=== PATIENT | male | born 2000 | race Caucasian/White ===

== ENCOUNTER 2021-06-17 21:56 | Inpatient (IN) ==
[2021-06-17 22:28] LABS: Basophils # (auto) 0.01 K/uL (0-0.2); Basophils % (auto) 0.1 %; Hematocrit (blood only) 46.8 % (42-52); Hemoglobin 17.3 g/dL (14.0-18.0); Immature Granulocytes # (auto) 0.02 K/uL (0.00-0.02); Immature Granulocytes % (auto) 0.2 %; Lymphocytes # (auto) 1.14 K/uL (1.2-3.4); Lymphocytes % (auto) 12.6 %; Mean Corpuscular Hemoglobin 32.6 pg (25-34); Mean Corpuscular Volume 88.3 fL (80-100); Mean Platelet Volume 9.7 fL (7.4-10.4); Monocytes # (auto) 1.02 K/uL (0.11-0.59); Monocytes % (auto) 11.3 %; Neutrophils # (auto) 6.83 K/uL (1.4-6.5); Neutrophils % (auto) 75.8 %; Platelet Count 378 K/uL (130-400); RDW Coefficient of Variation 11.9 % (11.5-14.5); White Blood Count 9.02 K/uL (4.8-10.8)
[2021-06-17] MEDS ORDERED: SODIUM CHLORIDE 0.9% 1000ML 2,000 ML IV ONE (22:28)
[2021-06-17] MEDS ORDERED: PROMETHAZINE 25 MG/51 ML BAG IV STA (22:36)
[2021-06-17] MEDS ORDERED: GI COCKTAIL ED USE PO ONE (22:39)
--- NOTE | 2021-06-17 22:39 | Emergency Department Note ---
Impression & Plan Choledocholithiasis, Transaminitis, Elevated bilirubin, Abdominal pain ED Provider Note NAME: DEBBI VILLANUEVA AGE: 21 SEX: M : 2000 ARRIVES VIA: Walk-In INFORMANT: Patient ED PROVIDER(S): Yonathan Butt DO CHIEF COMPLAINT: abdominal pain HPI: Patient is a 21-year-old male who presents to the ER for epigastric abdominal pain which has been present for there are past 3 days. Started on Saturday. Admits to nausea and vomiting. Everything he drinks comes back up. No dysuria, urgency, or frequency. He admits to dark urine. Normal bowel movem ents. No previous abdominal surgeries. He has been taking pantoprazole and improves initially after taking this but then it comes back. He is just started taking Carafate. No cough or runny nose. No other exacerbating or remitting factors. The pain does come up to the back of his throat and then he vomits. He does get in a runny nose after vomiting. ROS: See above HPI for pertinent positives & negatives. A total of 10 systems reviewed and were otherwise negative. PAST MEDICAL HISTORY:See Below PAST SURGICAL HISTORY:See Below FAMILY HISTORY:See Below SOCIAL HISTORY:See Below HOME MEDICATIONS:See Below ALLERGIES:See Below VITALS:See Below PHYSICAL EXAMINATION: GENERAL: Sitting up in bed, alert, well appearing, well nourished, no distress, non-toxic EYE EXAM: normal conjunctiva. PERRL and EOM's grossly intact. Scleral icterus OROPHARYNX: no exudate, no erythema, lips, buccal mucosa, and tongue normal and mucous membranes are moist NECK: supple, no nuchal rigidity, no adenopathy, non-tender LUNGS: Clear to auscultation. Normal chest wall mechanics HEART: no murmurs, S1 normal and S2 normal ABDOMEN: abdomen soft, tender in the epigastric region normo-active bowel sounds, no masses, no rebound or guarding. UPPER EXTREMITIES: upper extremities are grossly normal. SKIN: Jaundice LOWER EXTREMITIES: No pitting edema. NEURO EXAM: Normal sensorium, cranial nerves II-XII grossly intact, normal speech, no gross weakness of arms, no weakness of legs. MEDICAL DECISION MAKING: Patient is a 21-year-old male who presents the ER for above-stated complaint. IV was established blood was obtained. Labs show no significant leukocytosis or anemia. BMP was unremarkable. LFTs were elevated at 300 and T bili at 10. UA difficult to interpret but no white cells. Covid was negative. CT abdomen pelvis shows a large distended gallbladder with a CBD of 10 mm. Initially discussed case with Dr. Dixon for admission but she recommended general surgery. Dr. Vangie Robin was gracious enough to admit the patient. Patient was given IV fluids, morphine, Zofran and Phenergan. Patient was updated and admitted for further work-up. Triage Nursing notes reviewed. Limited review of prior medical records performed Vital Signs: reviewed and remarkable for tachy Differential diagnosis: Differential diagnoses includes but is not limited to gastritis, peptic ulcer disease, GERD, gallbladder disease, pancreatitis, small bowel obstruction, acute coronary syndrome, pericarditis, ischemic bowel, irritable bowel disease, irritable bowel syndrome, appendicitis, diverticulitis, malignancy, hernia, urinary tract infection, torsion, perforation, trauma, infectious. ER treatment provided: See below Diagnostics interpreted by me: ECG: none Cardiac Monitoring: An order was placed for continuous cardiac monitoring. The monitor shows a rate of 70 with sinus rhythm. Laboratory studies: As stated above and show below. Imaging studies: CT abdomen pelvis shows distended gallbladder with thickened wall and a CBD of 10 mm Consultation(s): Discussed with Vangie Robin for admission Procedures: none Critical Care: None Past Med/Surg History Medical History (Updated 06/18/21 @ 02:04 by Yonathan Butt DO) No significant past medical history Social History Smoking Status: Current every day smoker Tobacco Type: E-cigarettes / Vaping Preferred Language: Uzbek Feels Safe at Home: Yes Allergies Allergies Allergy/AdvReac Type Severity Reaction Status Date / Time No Known Allergies Allergy Unverified 06/17/21 22:34 Home Meds Home Medications Medication Instructions Recorded Confirmed No Known Home Medications 06/17/21 06/17/21 Results & Data (ED) Vital Signs Vital Signs - 24 hr 06/17/21 22:00 06/17/21 22:32 06/17/21 23:21 Temperature 36.5 C Temperature Source Temporal Artery Scan Pulse Rate 120 H Pulse Rate [Bilateral Apical] 117 H 68 Respiratory Rate 18 20 20 Blood Pressure 136/97 Blood Pressure [Right Arm] 139/94 162/82 H Blood Pressure Mean 110 Blood Pressure Mean [Right Arm] 109 108 Blood Pressure Position Sitting Pulse Oximetry 97 95 99 Oxygen Delivery Method Room Air Room Air Room Air Sepsis Recent Fever Within 48 Hours No Sepsis New/Unexplained Change in Mental Status No Sepsis Action Taken by Nursing No Action Required 06/18/21 00:21 Temperature Temperature Source Pulse Rate Pulse Rate [Bilateral Apical] 58 L Respiratory Rate 20 Blood Pressure Blood Pressure [Right Arm] 116/80 Blood Pressure Mean Blood Pressure Mean [Right Arm] 92 Blood Pressure Position Pulse Oximetry 98 Oxygen Delivery Method Room Air Sepsis Recent Fever Within 48 Hours Sepsis New/Unexplained Change in Mental Status Sepsis Action Taken by Nursing Laboratory Data Result diagrams: 06/17/21 22:00 06/17/21 22:00 Lab Results 06/17/21 06/17/21 06/17/21 Range/Units 22:00 22:00 22:55 WBC 9.02 (4.8-10.8) K/uL RBC 5.30 (4.7-6.1) M/uL Hgb 17.3 (14.0-18.0) g/dL Hct 46.8 (42-52) % MCV 88.3 (80-100) fL MCH 32.6 (25-34) pg MCHC 37.0 H (32-36) g/dL RDW Std Deviation 38.0 (36.4-46.3) fL RDW Coeff of Santy 11.9 (11.5-14.5) % Plt Count 378 (130-400) K/uL MPV 9.7 (7.4-10.4) fL Immature Gran % (Auto) 0.2 % Neut % (Auto) 75.8 % Lymph % (Auto) 12.6 % [place] % (Auto) 11.3 % Eos % (Auto) 0.0 % Baso % (Auto) 0.1 % Neut # (Auto) 6.83 H (1.4-6.5) K/uL Lymph # (Auto) 1.14 L (1.2-3.4) K/uL [place] # (Auto) 1.02 H (0.11-0.59) K/uL Eos # (Auto) 0.00 (0-0.5) K/uL Baso # (Auto) 0.01 (0-0.2) K/uL Immature Gran # (Auto) 0.02 (0.00-0.02) K/uL Sodium 136 (136-145) mmol/L Potassium 3.6 (3.5-5.1) mmol/L Chloride 101 (98-107) mmol/L Carbon Dioxide 21 (21-32) mmol/L Anion Gap 15.0 H (3-11) BUN 28 H (7-18) mg/dl Creatinine 1.12 (0.6-1.4) mg/dl Est Cr Clr Drug Dosing 99.8 ml/min Est GFR ( Amer) 106.7 ml/min Est GFR (Non-Af Amer) 92.1 ml/min BUN/Creatinine Ratio 25.0 H (10-20) Glucose 113 H (70-99) mg/dl Calcium 10.1 (8.5-10.1) mg/dl Total Bilirubin 10.3 H (0.2-1) mg/dl AST 270 H (15-37) U/L ALT 300 H (12-78) Alkaline Phosphatase 203 H D (45-117) U/L Total Protein 9.4 H (6.4-8.2) gm/dl Albumin 4.8 (3.4-5.0) gm/dl Globulin 4.6 H (2.5-4.0) gm/dl Albumin/Globulin Ratio 1.0 (0.9-2) Urine Color [place] Urine Appearance Clear (Clear) Urine pH (4.5-7.5) Ur Specific [place] > 1.030 H (1.000-1.030) Urine Protein (Negative) Urine Glucose (UA) (Negative) Urine Ketones (Negative) Urine Blood (Negative) Urine Nitrite (Negative) Urine Bilirubin (Negative) Urine Urobilinogen (Negative) Ur Leukocyte Esterase (Negative) Urine RBC 0-4 (0-4) /hpf Urine WBC 0-5 (0-5) /hpf Ur Epithelial Cells 0-5 (0-5) /lpf Urine Bacteria Negative (Negative) Urine Mucus Present A (None Prsent) SARS-CoV-2, RNA, NAAT (NEGATIVE) 06/18/21 Range/Units 00:20 WBC (4.8-10.8) K/uL RBC (4.7-6.1) M/uL Hgb (14.0-18.0) g/dL Hct (42-52) % MCV (80-100) fL MCH (25-34) pg MCHC (32-36) g/dL RDW Std Deviation (36.4-46.3) fL RDW Coeff of Santy (11.5-14.5) % Plt Count (130-400) K/uL MPV (7.4-10.4) fL Immature Gran % (Auto) % Neut % (Auto) % Lymph % (Auto) % [place] % (Auto) % Eos % (Auto) % Baso % (Auto) % Neut # (Auto) (1.4-6.5) K/uL Lymph # (Auto) (1.2-3.4) K/uL [place] # (Auto) (0.11-0.59) K/uL Eos # (Auto) (0-0.5) K/uL Baso # (Auto) (0-0.2) K/uL Immature Gran # (Auto) (0.00-0.02) K/uL Sodium (136-145) mmol/L Potassium (3.5-5.1) mmol/L Chloride (98-107) mmol/L Carbon Dioxide (21-32) mmol/L Anion Gap (3-11) BUN (7-18) mg/dl Creatinine (0.6-1.4) mg/dl Est Cr Clr Drug Dosing ml/min Est GFR ( Amer) ml/min Est GFR (Non-Af Amer) ml/min BUN/Creatinine Ratio (10-20) Glucose (70-99) mg/dl Calcium (8.5-10.1) mg/dl Total Bilirubin (0.2-1) mg/dl AST (15-37) U/L ALT (12-78) Alkaline Phosphatase (45-117) U/L Total Protein (6.4-8.2) gm/dl Albumin (3.4-5.0) gm/dl Globulin (2.5-4.0) gm/dl Albumin/Globulin Ratio (0.9-2) Urine Color Urine Appearance (Clear) Urine pH (4.5-7.5) Ur Specific [place] (1.000-1.030) Urine Protein (Negative) Urine Glucose (UA) (Negative) Urine Ketones (Negative) Urine Blood (Negative) Urine Nitrite (Negative) Urine Bilirubin (Negative) Urine Urobilinogen (Negative) Ur Leukocyte Esterase (Negative) Urine RBC (0-4) /hpf Urine WBC (0-5) /hpf Ur Epithelial Cells (0-5) /lpf Urine Bacteria (Negative) Urine Mucus (None Prsent) SARS-CoV-2, RNA, NAAT NEGATIVE (NEGATIVE) Administered Medications Discontinued Medications Al Hydrox/Mg Hydrox/Simethicone (Gi Cocktail Ed Use) 1 dose PO ONE ONE Stop: 06/17/21 22:40 Last Admin: 06/17/21 22:51 Dose: 1 dose Documented by: [id number] Sodium Chloride (Nss 1000ml) 2,000 mls @ 999 mls/hr IV .Q2H1M ONE Stop: 06/18/21 00:28 Last Infusion: 06/18/21 00:36 Dose: 0 mls/hr Documented by: [id number] Admin: 06/17/21 22:51 Dose: 999 mls/hr Documented by: [id number] Promethazine HCl (Phenergan) 25 mg in 51 mls @ 204 mls/hr IV NOW STA Stop: 06/17/21 22:50 Last Infusion: 06/17/21 23:12 Dose: 0 mls/hr Documented by: [id number] Admin: 06/17/21 22:51 Dose: 204 mls/hr Documented by: [id number] Piperacillin Sod/Tazobactam Sod (Zosyn) 4.5 gm in 120 mls @ 240 mls/hr IV NOW ONE Stop: 06/17/21 23:58 Last Infusion: 06/18/21 00:36 Dose: 0 mls/hr Documented by: [id number] Admin: 06/18/21 00:04 Dose: 240 mls/hr Documented by: [id number] Ioversol (Optiray 320 100ml) 95 ml IV ONCE ONE Stop: 06/17/21 23:47 Last Admin: 06/17/21 23:37 Dose: 95 ml Documented by: [id number] Morphine Sulfate (Morphine Sulfate 4 Mg/Ml 1 Ml Carp\Vial) 4 mg IV NOW STA Stop: 06/18/21 00:52 Last Admin: 06/18/21 00:59 Dose: 4 mg Documented by: [id number] Ondansetron HCl (Ondansetron Inj 2 Mg/Ml 2 Ml Vial) 4 mg IV NOW STA Stop: 06/18/21 00:52 Last Admin: 06/18/21 00:59 Dose: 4 mg Documented by: [id number] Discharge Plan Visit Data Chief Complaint: Flu Like Symptoms Stated Complaint: LIGHT HEADED, ABD PAIN, VOMITING, SHAKY, SWEATS ED Provider: Yonathan Butt Discharge Problem: Choledocholithiasis, Transaminitis, Elevated bilirubin, Abdominal pain Discharge Instructions Interventions: ED Discharge Assessment Last Done: 06/18/21 01:39 Discharge Problem: Abdominal pain Qualifiers: Abdominal location: unspecified location Qualified Code(s): R10.9 - Unspecified abdominal pain
[2021-06-17 22:49] LABS: Albumin Level 4.8 gm/dl (3.4-5.0); Calcium 10.1 mg/dl (8.5-10.1); Creatinine Clr Calc Pharmacy 99.8 ml/min; Est GFR (African American) 106.7 ml/min; Est GFR (Non-African American) 92.1 ml/min; Potassium 3.6 mmol/L (3.5-5.1)
[2021-06-17 22:53] LABS: Bilirubin,Total 10.3 mg/dl (0.2-1); Globulin 4.6 gm/dl (2.5-4.0); Total Protein 9.4 gm/dl (6.4-8.2)
[2021-06-17] MEDS ORDERED: PIPERACILLIN/TAZOBACTAM 4.5 GM/120 ML BAG IV ONE (23:29)
[2021-06-17] MEDS ORDERED: PIPERACILL/TAZOBAC CONSULT ACTIVE PRN (23:29)
[2021-06-17] MEDS ORDERED: OPTIRAY 320 100ml IV ONE (23:46)
[2021-06-17 23:55] LABS: Appearance Urine Clear (Clear); Color Urine Orange
[2021-06-17 23:56] LABS: Specific Gravity Urine > 1.030 (1.000-1.030)
[2021-06-17 23:58] LABS: Bacteria Urine Negative (Negative); Epithelial Cell Urine 0-5 /lpf (0-5); Mucus Urine Present (None Prsent); RBC Urine 0-4 /hpf (0-4); WBC Urine 0-5 /hpf (0-5)
[2021-06-18] MEDS ORDERED: ONDANSETRON INJ 2 MG/ML 2 ML VIAL IV STA (00:51)
[2021-06-18] MEDS ORDERED: MoRPHine SULFATE 4 MG/ML 1 ML CARP\\VIAL IV STA (00:51)
[2021-06-18] MEDS ORDERED: ACETAMINOPHEN 325 MG TAB PO PRN (02:02)
[2021-06-18] MEDS ORDERED: PIPERACILL/TAZOBAC CONSULT ACTIVE PRN (02:02)
[2021-06-18] MEDS ORDERED: oxyCODONE/ACETAMINOPHEN 5mg/325mg TAB PO PRN ×2 (02:02)
[2021-06-18] MEDS ORDERED: MoRPHine SULFATE 2 MG/ML CARP IV PRN (02:02)
[2021-06-18] MEDS ORDERED: FLUARIX QUADRIVALENT 0.5 ML SYR IM ONE (02:16)
[2021-06-18] MEDS: LACTATED RINGER'S 1,000 ML IV SCH ×3 (02:17→21:49)
[2021-06-18] MEDS: ONDANSETRON INJ 2 MG/ML 2 ML VIAL IV PRN ×3 (05:40→18:16)
[2021-06-18] MEDS: MoRPHine SULFATE 4 MG/ML 1 ML CARP\\VIAL IV PRN ×6 (05:40→21:49)
[2021-06-18] MEDS: PIPERACILLIN/TAZOBACTAM 3.375 GM in DEXTROSE 5% 100 ML IV SCH ×3 (06:38→21:40)
--- NOTE | 2021-06-18 08:56 | CT Scan Report ---
ABDOMEN AND PELVIS CT WITH IV CONTRAST CT DOSE: 274.66 mGy.cm HISTORY: Nausea. Vomiting. Generalized abd pain TECHNIQUE: Multiaxial CT images of the abdomen and pelvis were performed following the use of intrave nous contrast. A dose lowering technique was utilized adhering to the principles of ALARA. COMPARISON STUDY: Abdomen and pelvis CT 06/26/2019. FINDINGS: The lung bases are clear. No pneumoperitoneum. No pneumatosis. No fractures within the visu alized osseous structures. The spleen, adrenal glands, pancreas, and kidneys are unremarkable. No hyd ronephrosis. Diffuse gallbladder wall thickening with trace pericholecystic fluid. There is also mild intra and extra hepatic bile duct dilatation. No obstructing stones or lesions identified. However, these findings are concerning for acute cholecystitis. No retroperitoneal lymphadenopathy. Normal maria luisa iber abdominal aorta. No pelvic free fluid. The bladder is unremarkable. No bowel wall thickening or obstruction. Normal appendix. IMPRESSION: Diffuse gallbladder wall thickening with trace pericholecystic fluid. There is also mild intra and ex tra hepatic bile duct dilatation. No obstructing stones or lesions identified. However, these finding s are concerning for acute cholecystitis. Therefore, surgical consultation recommended. ACT 112: Negative or not required by law. Electronically signed by: Scott Morel M.D. 06/18/2021 8:54 AM
--- NOTE | 2021-06-18 10:56 | History & Physical Report ---
Date of Service June 18, 2021 Assessment & Plan (1) Transaminitis: Plan: Significantly elevated bilirubin and AST/ ALT. No sign of gallstones on abdominal CT scan but does demonstrate pericholecystic fluid, mild intra and extra hepatic dilation. Review of CT abd from 2019 showed trace GB wall edema at that time. Unclear etiology - ? stones/ sludge, ? viral hepatitis, ? drug toxicity. Will ask for GI consult. Follow LFT's. Abdominal US ordered to get a better look at GB. May need MRCP, hepatitis serologies, etc. Given no stones, I have asked medicine to admit patient. Will follow. (2) Abdominal pain: Plan: Treat symptomatically - pain meds, NPO except ice chips. Will add IV protonix given history of ulcer. Admission and Anticipated Discharge Date Admission Date: June 18, 2021 History of Present Illness Chief Complaint: abdominal pain, nausea and vomiting Primary Care Provider: [facility] 21 yr old man presents with abdominal pain since Saturday. Diffuse, generalized, worse in epigastrium and sternal area, radiates to back, sharp/ stabbing at times. 10/10 in severity. Associated with nausea, vomiting, dry heaves. [place] short of breath and had chills after throwing up. Unable to even keep down clear liquids. No similar episodes in the past. Noticed his urine was darker, more dark orange colored. Having some constipation. Called his GI doctor who increased his pantoprazole to twice daily, added carafate and zofran. Feels he got somewhat worse with this. In the past, saw GI and had an endoscopy showing an ulcer. Was treated with daily pantoprazole. Also has known Gilbert's disease with mild elevation of bilirubin. Denies any recent alcohol or drug use. Notes he smokes, but not recently. Has had a hepatitis panel in the past which was negative. Due to graduate next week with final exams upcoming. Allergies Allergy/AdvReac Type Severity Reaction Status Date / Time No Known Allergies Allergy Unverified 06/17/21 22:34 Home Medications Medication Instructions Recorded Confirmed Type No Known Home Medications 06/17/21 06/17/21 History Past Med/Surg History Medical History GERD (gastroesophageal reflux disease) Gilbert disease No significant past medical history Stomach ulcer Social History Smoking Status: Current every day smoker Tobacco Type: E-cigarettes / Vaping Second Hand Exposure: No; Do You Dip or Chew Tobacco: No; Tobacco Cessation Education Requested by Patient: No Hx Alcohol Use: Yes Alcohol type: hard liquor Hx Substance Use: No Preferred Language: Nigerian Steno [employer] Super[employer] Required: No Beliefs That Will Affect Care: None Current Living Situation: Alone Other Information That Helps Us Care for You: No Feels Safe at Home: Yes Assistive Devices: None Review of Systems Review of Systems: All systems reviewed & are unremarkable except as noted in HPI & below Constitutional: + chills; no fever Respiratory: no cough Cardiovascular: no problem reported Gastrointestinal: as per Subjective / HPI Genitourinary: no problem reported Neurologic: no problem reported Endocrine: no problem reported Hematologic / Lymphatic: no problem reported Physical Exam Constitutional: WD/WN, vitals as above Eyes: + scleral abnormality (icterus present) and PERRL Neck: trachea midline, no thyromegaly Respiratory: normal respiratory effort, lungs clear to auscultation Cardiovascular: RRR, no murmur, no edema Gastrointestinal (Abdomen): soft, pos bowel tones, diffusely tender but worst in right upper quadrant and epigastrium with guarding, nondistended, no hernias, no surgical scars Musculoskeletal: no cyanosis or clubbing, extremities motor strength 5/5 Skin: jaundiced Neurologic: no gross motor defects Psychiatric: A+Ox3, euthymic affect Results & Data Results & Data ([facility]) Vital Signs (Past 12 Hours) Vital Signs Temp Pulse Pulse Resp BP Pulse Ox 06/18/21 07:29 36.8 C 54 L 18 119/74 97 06/18/21 02:05 36.6 C 64 18 146/90 H 98 06/18/21 01:27 68 20 130/86 98 06/18/21 00:21 58 L 20 116/80 98 06/17/21 23:21 68 20 162/82 H 99 Laboratory Results 06/18/21 06/18/21 06/18/21 Range/Units 10:53 10:53 10:53 WBC 8.05 (4.8-10.8) K/uL RBC 4.36 L (4.7-6.1) M/uL Hgb 14.1 D (14.0-18.0) g/dL Hct 39.3 L (42-52) % MCV 90.1 (80-100) fL MCH 32.3 (25-34) pg MCHC 35.9 (32-36) g/dL RDW Std Deviation 40.1 (36.4-46.3) fL RDW Coeff of Santy 12.1 (11.5-14.5) % Plt Count 298 (130-400) K/uL MPV 9.6 (7.4-10.4) fL Immature Gran % (Auto) 0.1 % Neut % (Auto) 60.4 % Lymph % (Auto) 23.7 % [place] % (Auto) 15.2 % Eos % (Auto) 0.4 % Baso % (Auto) 0.2 % Neut # (Auto) 4.86 (1.4-6.5) K/uL Lymph # (Auto) 1.91 (1.2-3.4) K/uL [place] # (Auto) 1.22 H (0.11-0.59) K/uL Eos # (Auto) 0.03 (0-0.5) K/uL Baso # (Auto) 0.02 (0-0.2) K/uL Immature Gran # (Auto) 0.01 (0.00-0.02) K/uL Sodium Pending (136-145) mmol/L Potassium Pending (3.5-5.1) mmol/L Chloride Pending (98-107) mmol/L Carbon Dioxide Pending (21-32) mmol/L Anion Gap Pending (3-11) BUN Pending (7-18) mg/dl Creatinine Pending (0.6-1.4) mg/dl Est Cr Clr Drug Dosing Pending ml/min Est GFR ( Amer) Pending ml/min Est GFR (Non-Af Amer) Pending ml/min BUN/Creatinine Ratio Pending (10-20) Glucose Pending (70-99) mg/dl Calcium Pending (8.5-10.1) mg/dl Total Bilirubin Pending (0.2-1) mg/dl AST Pending (15-37) U/L ALT Pending (12-78) Alkaline Phosphatase Pending (45-117) U/L Total Protein Pending (6.4-8.2) gm/dl Albumin Pending (3.4-5.0) gm/dl Globulin Pending (2.5-4.0) gm/dl Albumin/Globulin Ratio Pending (0.9-2) Lipase (73-393) U/L Urine Color Urine Appearance (Clear) Urine pH (4.5-7.5) Ur Specific [place] (1.000-1.030) Urine Protein (Negative) Urine Glucose (UA) (Negative) Urine Ketones (Negative) Urine Blood (Negative) Urine Nitrite (Negative) Urine Bilirubin (Negative) Urine Urobilinogen (Negative) Ur Leukocyte Esterase (Negative) Urine RBC (0-4) /hpf Urine WBC (0-5) /hpf Ur Epithelial Cells (0-5) /lpf Urine Bacteria (Negative) Urine Mucus (None Prsent) EBV Capsid Ag IgG Ab Pending EBV Capsid Ag IgM Ab Pending EBV EA Restrict+Diffuse Pending EBV Nuclear Antigen Ab Pending EBV Antibody Interp Pending Hepatitis A IgM Ab Monoscreen (Negative) SARS-CoV-2, RNA, NAAT (NEGATIVE) 06/18/21 06/18/21 06/18/21 Range/Units 10:53 10:53 00:20 WBC (4.8-10.8) K/uL RBC (4.7-6.1) M/uL Hgb (14.0-18.0) g/dL Hct (42-52) % MCV (80-100) fL MCH (25-34) pg MCHC (32-36) g/dL RDW Std Deviation (36.4-46.3) fL RDW Coeff of Santy (11.5-14.5) % Plt Count (130-400) K/uL MPV (7.4-10.4) fL Immature Gran % (Auto) % Neut % (Auto) % Lymph % (Auto) % [place] % (Auto) % Eos % (Auto) % Baso % (Auto) % Neut # (Auto) (1.4-6.5) K/uL Lymph # (Auto) (1.2-3.4) K/uL [place] # (Auto) (0.11-0.59) K/uL Eos # (Auto) (0-0.5) K/uL Baso # (Auto) (0-0.2) K/uL Immature Gran # (Auto) (0.00-0.02) K/uL Sodium (136-145) mmol/L Potassium (3.5-5.1) mmol/L Chloride (98-107) mmol/L Carbon Dioxide (21-32) mmol/L Anion Gap (3-11) BUN (7-18) mg/dl Creatinine (0.6-1.4) mg/dl Est Cr Clr Drug Dosing ml/min Est GFR ( Amer) ml/min Est GFR (Non-Af Amer) ml/min BUN/Creatinine Ratio (10-20) Glucose (70-99) mg/dl Calcium (8.5-10.1) mg/dl Total Bilirubin (0.2-1) mg/dl AST (15-37) U/L ALT (12-78) Alkaline Phosphatase (45-117) U/L Total Protein (6.4-8.2) gm/dl Albumin (3.4-5.0) gm/dl Globulin (2.5-4.0) gm/dl Albumin/Globulin Ratio (0.9-2) Lipase (73-393) U/L Urine Color Urine Appearance (Clear) Urine pH (4.5-7.5) Ur Specific [place] (1.000-1.030) Urine Protein (Negative) Urine Glucose (UA) (Negative) Urine Ketones (Negative) Urine Blood (Negative) Urine Nitrite (Negative) Urine Bilirubin (Negative) Urine Urobilinogen (Negative) Ur Leukocyte Esterase (Negative) Urine RBC (0-4) /hpf Urine WBC (0-5) /hpf Ur Epithelial Cells (0-5) /lpf Urine Bacteria (Negative) Urine Mucus (None Prsent) EBV Capsid Ag IgG Ab EBV Capsid Ag IgM Ab EBV EA Restrict+Diffuse EBV Nuclear Antigen Ab EBV Antibody Interp Hepatitis A IgM Ab Pending Monoscreen Negative (Negative) SARS-CoV-2, RNA, NAAT NEGATIVE (NEGATIVE) 06/17/21 06/17/21 06/17/21 Range/Units 22:55 22:00 22:00 WBC 9.02 (4.8-10.8) K/uL RBC 5.30 (4.7-6.1) M/uL Hgb 17.3 (14.0-18.0) g/dL Hct 46.8 (42-52) % MCV 88.3 (80-100) fL MCH 32.6 (25-34) pg MCHC 37.0 H (32-36) g/dL RDW Std Deviation 38.0 (36.4-46.3) fL RDW Coeff of Santy 11.9 (11.5-14.5) % Plt Count 378 (130-400) K/uL MPV 9.7 (7.4-10.4) fL Immature Gran % (Auto) 0.2 % Neut % (Auto) 75.8 % Lymph % (Auto) 12.6 % [place] % (Auto) 11.3 % Eos % (Auto) 0.0 % Baso % (Auto) 0.1 % Neut # (Auto) 6.83 H (1.4-6.5) K/uL Lymph # (Auto) 1.14 L (1.2-3.4) K/uL [place] # (Auto) 1.02 H (0.11-0.59) K/uL Eos # (Auto) 0.00 (0-0.5) K/uL Baso # (Auto) 0.01 (0-0.2) K/uL Immature Gran # (Auto) 0.02 (0.00-0.02) K/uL Sodium 136 (136-145) mmol/L Potassium 3.6 (3.5-5.1) mmol/L Chloride 101 (98-107) mmol/L Carbon Dioxide 21 (21-32) mmol/L Anion Gap 15.0 H (3-11) BUN 28 H (7-18) mg/dl Creatinine 1.12 (0.6-1.4) mg/dl Est Cr Clr Drug Dosing 99.8 ml/min Est GFR ( Amer) 106.7 ml/min Est GFR (Non-Af Amer) 92.1 ml/min BUN/Creatinine Ratio 25.0 H (10-20) Glucose 113 H (70-99) mg/dl Calcium 10.1 (8.5-10.1) mg/dl Total Bilirubin 10.3 H (0.2-1) mg/dl AST 270 H (15-37) U/L ALT 300 H (12-78) Alkaline Phosphatase 203 H D (45-117) U/L Total Protein 9.4 H (6.4-8.2) gm/dl Albumin 4.8 (3.4-5.0) gm/dl Globulin 4.6 H (2.5-4.0) gm/dl Albumin/Globulin Ratio 1.0 (0.9-2) Lipase 94 (73-393) U/L Urine Color [place] Urine Appearance Clear (Clear) Urine pH (4.5-7.5) Ur Specific [place] > 1.030 H (1.000-1.030) Urine Protein (Negative) Urine Glucose (UA) (Negative) Urine Ketones (Negative) Urine Blood (Negative) Urine Nitrite (Negative) Urine Bilirubin (Negative) Urine Urobilinogen (Negative) Ur Leukocyte Esterase (Negative) Urine RBC 0-4 (0-4) /hpf Urine WBC 0-5 (0-5) /hpf Ur Epithelial Cells 0-5 (0-5) /lpf Urine Bacteria Negative (Negative) Urine Mucus Present A (None Prsent) EBV Capsid Ag IgG Ab EBV Capsid Ag IgM Ab EBV EA Restrict+Diffuse EBV Nuclear Antigen Ab EBV Antibody Interp Hepatitis A IgM Ab Monoscreen (Negative) SARS-CoV-2, RNA, NAAT (NEGATIVE) Diagnostic Findings CT scan ABDOMEN AND PELVIS CT WITH IV CONTRAST CT DOSE: 274.66 mGy.cm HISTORY: Nausea. Vomiting. Generalized abd pain TECHNIQUE: Multiaxial CT images of the abdomen and pelvis were performed following the use of intravenous contrast. A dose lowering technique was utilized adhering to the principles of ALARA. COMPARISON STUDY: Abdomen and pelvis CT 06/26/2019. FINDINGS: The lung bases are clear. No pneumoperitoneum. No pneumatosis. No fractures within the visualized osseous structures. The spleen, adrenal glands, pancreas, and kidneys are unremarkable. No hydronephrosis. Diffuse gallbladder wall thickening with trace pericholecystic fluid. There is also mild intra and extra hepatic bile duct dilatation. No obstructing stones or lesions identified. However, these findings are concerning for acute cholecystitis. No retroperitoneal lymphadenopathy. Normal caliber abdominal aorta. No pelvic free fluid. The bladder is unremarkable. No bowel wall thickening or obstruction. Normal appendix. IMPRESSION: Diffuse gallbladder wall thickening with trace pericholecystic fluid. There is also mild intra and extra hepatic bile duct dilatation. No obstructing stones or lesions identified. However, these findings are concerning for acute cholecystitis. Therefore, surgical consultation recommended. Code Status & VTE Plan VTE Prophylaxis Plan VTE Prophylaxis will be ordered: Yes (1) Abdominal pain Abdominal location: unspecified location Qualified Code(s): R10.9 - Unspecified abdominal pain
[2021-06-18 11:31] LABS: Basophils # (auto) 0.02 K/uL (0-0.2); Basophils % (auto) 0.2 %; Eosinophils # (auto) 0.03 K/uL (0-0.5); Eosinophils % (auto) 0.4 %; Hematocrit (blood only) 39.3 % (42-52); Hemoglobin 14.1 g/dL (14.0-18.0); Immature Granulocytes # (auto) 0.01 K/uL (0.00-0.02); Immature Granulocytes % (auto) 0.1 %; Lymphocytes # (auto) 1.91 K/uL (1.2-3.4); Lymphocytes % (auto) 23.7 %; Mean Corpuscular Hemoglobin 32.3 pg (25-34); Mean Corpuscular Hgb Conc 35.9 g/dL (32-36); Mean Corpuscular Volume 90.1 fL (80-100); Mean Platelet Volume 9.6 fL (7.4-10.4); Monocytes # (auto) 1.22 K/uL (0.11-0.59); Monocytes % (auto) 15.2 %; Neutrophils # (auto) 4.86 K/uL (1.4-6.5); Neutrophils % (auto) 60.4 %; Platelet Count 298 K/uL (130-400); RDW Coefficient of Variation 12.1 % (11.5-14.5); RDW Standard Deviation 40.1 fL (36.4-46.3); Red Blood Count 4.36 M/uL (4.7-6.1); White Blood Count 8.05 K/uL (4.8-10.8)
--- NOTE | 2021-06-18 11:38 | Gastrointestinal Consultation ---
Date of Consultation June 18, 2021 Assessment & Plan (1) Transaminitis: 21 yo male wiht 3 days of nausea, vomiting, and upper abdominal found to have transminases in the 2-300's with Ap of 200 and total bili of 10.3. CT scan s/o acute cholecystitis and showing some biliary dilation. - MRCP to be done this AM - Check hep A as well as EBV. - Repeat LFTs - General surgery already involved. (2) Elevated bilirubin: (3) Abdominal pain: History of Present Illness Reason for Consultation: epig pain, elevated LFTs, concern for choledocho Attending Physician: Vangie Robin MD History of Present Illness 21 yo male with a 3 day history of nausea,vomiting and epigastric and RUQ abd pain. He has been unable ot eat and even liquids have made his vomit and dry heave. He increased his PPI and started carafate as an outpatient. THis didn't help and he came to the ER. No new meds other than the reflux regimen. No vitamins. No known sick contacts. Labs on eval in the ER are significant for AST 270, ALT 300, AP 203, total bili 10.3 and lipase of 94. CT scan done int he ER showed GB wall thickening, pericholecystic fluid and mild intra and extrahepatic ductal dilation. reports acute cholecystits. He was started on Zosyn. No fevers. WBC is normal. Allergies Allergy/AdvReac Type Severity Reaction Status Date / Time No Known Allergies Allergy Unverified 06/17/21 22:34 Home Medications Medication Instructions Recorded Confirmed Type No Known Home Medications 06/17/21 06/17/21 History Patient History Medical History (Updated 06/18/21 @ 06:25 by Su Sumner RN) GERD (gastroesophageal reflux disease) Gilbert disease No significant past medical history Stomach ulcer Social History Smoking Status: Current every day smoker Tobacco Type: E-cigarettes / Vaping Second Hand Exposure: No; Do You Dip or Chew Tobacco: No; Tobacco Cessation Education Requested by Patient: No Hx Alcohol Use: Yes Alcohol type: hard liquor Hx Substance Use: No Preferred Language: Beninese Mines Safety Engineer Required: No Beliefs That Will Affect Care: None Current Living Situation: Alone Other Information That Helps Us Care for You: No Feels Safe at Home: Yes Assistive Devices: None Review of Systems Review of Systems: All systems reviewed & are unremarkable except as noted in HPI & below Physical Exam Constitutional: WD/WN, vitals as above Respiratory: normal respiratory effort, lungs clear to auscultation Cardiovascular: RRR, no murmur, no edema Gastrointestinal (Abdomen): Inspection/Auscultation: abdomen normal to inspection and normal bowel sounds Percussion/Palpation: + abdomen tender Results & Data ([facility]) Vital Signs (Past 12 Hours) Vital Signs Temp Pulse Pulse Resp BP Pulse Ox 06/18/21 07:29 36.8 C 54 L 18 119/74 97 06/18/21 02:05 36.6 C 64 18 146/90 H 98 06/18/21 01:27 68 20 130/86 98 06/18/21 00:21 58 L 20 116/80 98 (1) Abdominal pain Abdominal location: unspecified location Qualified Code(s): R10.9 - Unspecified abdominal pain
--- NOTE | 2021-06-18 12:20 | Magnetic Resonance Report ---
MRCP CLINICAL HISTORY: epig/ruq pain; elev LFT and bilirubin of 10 TECHNIQUE: Utilizing a 1.5 Tracy magnet and dedicated coil, multiplanar, multiecho imaging of the [facility] er abdomen was performed utilizing heavily T2 weighted pulsing sequences without IV contrast. COMPARISON STUDY: CT of the abdomen and pelvis June 17, 2021. FINDINGS: There is a 5 mm impacted calculus within the distal common bile duct. This results in mild intra and extrahepatic biliary ductal dilatation. Common bile duct measures 9 mm in caliber. There ar e numerous gallstones within the gallbladder. The gallbladder is distended. There is gallbladder wall thickening. There is a small amount of pericholecystic fluid. There is also fluid within the comfort h epatis. There is no pancreatic ductal dilatation. No hepatic lesions are identified on this unenhance d exam. Unenhanced images of the spleen, adrenal glands and kidneys are normal. There is no hydroneph rosis. No abdominal lymphadenopathy is present. Caliber of visualized small and large bowel are abdelrahman l. No suspicious marrow replacement is identified within visualized skeletal structures. IMPRESSION: 1. 5 mm impacted calculus within the distal common bile duct which results in mild intra and extra he patic biliary ductal dilatation. 2. Cholelithiasis. In addition, gallbladder wall thickening and pericholecystic fluid. These findings favor acute cholecystitis. ACT 112: Negative or not required by law. Electronically signed by: Yovany Darling M.D. 06/18/2021 12:19 PM
[2021-06-18 12:22] LABS: Albumin Globulin Ratio 0.9 (0.9-2); Albumin Level 3.6 gm/dl (3.4-5.0); BUN Creatinine Ratio 17.2 (10-20); Bilirubin,Total 9.8 mg/dl (0.2-1); Calcium 9.2 mg/dl (8.5-10.1); Creatinine Clr Calc Pharmacy 111.5 ml/min; Est GFR (African American) 119.5 ml/min; Est GFR (Non-African American) 103.1 ml/min; Globulin 3.8 gm/dl (2.5-4.0); Potassium 3.8 mmol/L (3.5-5.1); Total Protein 7.4 gm/dl (6.4-8.2)
--- NOTE | 2021-06-18 12:54 | Ultrasound Report ---
ABDOMINAL ULTRASOUND, RIGHT UPPER QUADRANT HISTORY: elevated liver tests, gallbladder wall thickening. COMPARISON: MRCP 06/18/2021. FINDINGS: Pancreas: The pancreas demonstrates a normal echotexture. The main pancreatic duct is normal in calib er measuring 2 mm. Liver: Mild intrahepatic bile duct dilatation is again noted. No hepatic masses. Gallbladder: Small amount of sludge and stones within the gallbladder. Diffuse gallbladder wall thick ening with trace pericardial fluid. Findings likely represent acute cholecystitis. CBD: Dilated up to 1 cm. Right kidney: No hydronephrosis. IMPRESSION: 1. Gallbladder wall thickening with sludge and small stones. This likely represents acute cholecystit is. Surgical consultation recommended. 2. Dilated intra and extrahepatic bile ducts are again noted. The common bile duct stone seen on the same day MRCP is not clearly identified by this examination. ACT 112: Negative or not required by law. Electronically signed by: Scott Morel M.D. 06/18/2021 12:52 PM
--- NOTE | 2021-06-18 13:04 | Electrocardiogram Report ---
Test Reason : Blood Pressure : / mmHG Vent. Rate : 106 BPM Atrial Rate : 106 BPM P-R Int : 130 ms QRS Dur : 076 ms QT Int : 324 ms P-R-T Axes : 084 078 041 degrees QTc Int : 430 ms Sinus tachycardia Biatrial enlargement Abnormal ECG When compared with ECG of 26-JUN-2019 13:12, Vent. rate has increased BY 44 BPM Confirmed by Hamzah Mays ([id number]) on 06/18/2021 1:03:54 PM Referred By: REFERRED SELF Confirmed By:Hamzah Mays
--- NOTE | 2021-06-18 13:51 | Communication Note ---
Date of Service: June 18, 2021 MRCP positive for a 5mm stone impacted in the CBD. Continue abx. Please make patient NPO after MN for ERCP tomorrow with Dr.M. Robin.
--- NOTE | 2021-06-18 15:52 | Hospitalist Consultation ---
Date of Consultation June 18, 2021 Assessment & Plan (1) Choledocholithiasis: - Pt with findings of impacted 5mm gallstone in CBD for ERCP 06/19 - Clear liquids for now and make NPO after MN - Continue pain control with Morphine as ordered by surgery - D/C Percocet (no need for both narcotic analgesics) - GI & Surgery following - Continue IVF and empiric Zosyn as ordered (2) Transaminitis: - Due to #1 - Anticipate resolution following stone extraction (3) Elevated bilirubin: - Documented h/o Gilbert's; however, pt also currently has an obstructive process which can cause hyperbilirubinemia (4) GERD (gastroesophageal reflux disease): - Continue Protonix BID Low risk for VTE, ambulate - no need for pharmacologic DVT ppx AM labs ordered Transfer care to medicine with surgery/GI on consult Plan d/w Dr. Atkinson Supervising Physician Co-Signing Physician Notes Attending note: patient seen and examined with Marlen FRAIRE. I agree with her assessment and plan, examination, ROS and history. ERCP reviewed, he has a 5mm stone in CBD appreciate GI consult, plan for ERCP on 06/19 timing of cholecystectomy per surgery - Choledocholithiasis with dilated gall bladder, possible cholecystitis plan for ERCP, cholecystectomy medicine will be primary History of Present Illness Reason for Consultation: Medical management and transfer of care Requesting Physician: Vangie Robin Attending Physician: Vangie Robin MD History of Present Illness Mauricio Carpio is a 21 yo WM with a pmhx of GERD who presented to the ER today complaining of epigastric abdominal pain since Thursday 06/14. Pt notes rather acute onset, no radiation, sharp/stabbing in nature, and pain rated 10/10. Symptoms associated with nausea, vomiting, and lack of appetite. He has not had anything to eat/drink since Saturday due to inability to keep any food or liquid down. He denies fever, chills, diarrhea, chest pain. He did mention that he had some shortness of breath but felt that it was more related to his pain. Currently, his pain is controlled after being medicated with Morphine, Zofran, and Percocet. He has never had anything like this in the past to this severity. His ED w/u included CT of his abd/pelvis with contrast that demonstrated findings of diffuse GB wall thickening with trace pericholecystic fluid concerning for acute rain in addition to elevated LFTs. He was subsequently hospitalized under general surgery service initially with plans for cholecystectomy. However, since no stones were appreciated on CT imaging, surgery service has now requested that care be transferred to medicine with further work up of his elevated LFTs. Gastroenterology has also been consulted. Since the time that medicine has been asked to see in consultation and transfer care to hospitalist service, both a RUQ ultrasound and MRCP have been performed which note findings of a 5mm impacted gallstone in the CBD. Pt is now scheduled for ERCP to be done tomorrow 06/19 followed by lap cholecystectomy. Allergies Allergy/AdvReac Type Severity Reaction Status Date / Time No Known Allergies Allergy Unverified 06/17/21 22:34 Home Medications Medication Instructions Recorded Confirmed Type No Known Home Medications 06/17/21 06/17/21 History Patient History Medical History (Updated 06/18/21 @ 16:08 by Marlen Lisa PA-C) GERD (gastroesophageal reflux disease) Gilbert disease No significant past medical history Stomach ulcer Social History Smoking Status: Current every day smoker Tobacco Type: E-cigarettes / Vaping Second Hand Exposure: No; Do You Dip or Chew Tobacco: No; Tobacco Cessation Education Requested by Patient: No Hx Alcohol Use: Yes Alcohol type: hard liquor Hx Substance Use: No Preferred Language: Macedonian Customer Service Officer Required: No Beliefs That Will Affect Care: None Current Living Situation: Alone Other Information That Helps Us Care for You: No Feels Safe at Home: Yes Assistive Devices: None Review of Systems Review of Systems: CONSTITUTIONAL: Denies weight loss/gain, fever and chills, fatigue, malaise, generalized weakness. HEENT: Denies changes in vision and hearing. RESPIRATORY: Denies SOB, cough, wheezing. CV: Denies palpitations, CP, lower extremity edema, orthopnea, PND. GI: +abdominal pain, nausea, vomiting. Denies diarrhea. : Denies dysuria and urinary frequency, urgency, hesitancy. MUSCULOSKELETAL: Denies myalgia and joint pain. SKIN: Denies rash and pruritus. NEUROLOGICAL: Denies headache, syncope, focal weakness, numbness, tingling. PSYCHIATRIC: Denies recent changes in mood. Denies anxiety and depression. Physical Exam Physical Exam: GENERAL: 21 yo WD/WN WM. Pleasant, cooperative. NAD. LUNGS: Clear to auscultation bilaterally. No accessory muscle use. No W/R/R. CARDIOVASCULAR: Regular rate and rhythm. No M/G/R. No JVD. ABDOMEN: Soft, tender to even light palpation in epigastrium. Belly soft. +BS throughout. EXTREMITIES: No edema. Non-tender. Peripheral pulses +2/4. PSYCHIATRIC: Cooperative. Appropriate mood and affect. SKIN: Warm, dry, intact. No rashes or lesions. Results & Data Results & Data ([facility]) Vital Signs (Past 12 Hours) Vital Signs Temp Pulse Resp BP Pulse Ox 06/18/21 07:29 36.8 C 54 L 18 119/74 97 Laboratory Results 06/18/21 10:53 06/18/21 10:53 VIG=997 GXI=212 ALK WMZO=[id number] Diagnostic Findings Abdomen/Pelvis CT 06/17/21 22:[address] WITH IV CONTRAST CT DOSE: 274.66 mGy.cm HISTORY: Nausea. Vomiting. Generalized abd pain TECHNIQUE: Multiaxial CT images of the abdomen and pelvis were performed following the use of intravenous contrast. A dose lowering technique was utilized adhering to the principles of ALARA. COMPARISON STUDY: Abdomen and pelvis CT 06/26/2019. FINDINGS: The lung bases are clear. No pneumoperitoneum. No pneumatosis. No fractures within the visualized osseous structures. The spleen, adrenal glands, pancreas, and kidneys are unremarkable. No hydronephrosis. Diffuse gallbladder wall thickening with trace pericholecystic fluid. There is also mild intra and extra hepatic bile duct dilatation. No obstructing stones or lesions identified. However, these findings are concerning for acute cholecystitis. No retroperitoneal lymphadenopathy. Normal caliber abdominal aorta. No pelvic free fluid. The bladder is unremarkable. No bowel wall thickening or obstruction. Normal appendix. IMPRESSION: Diffuse gallbladder wall thickening with trace pericholecystic fluid. There is also mild intra and extra hepatic bile duct dilatation. No obstructing stones or lesions identified. However, these findings are concerning for acute cholecystitis. Therefore, surgical consultation recommended. ACT 112: Negative or not required by law. Electronically signed by: Scott Morel M.D. 06/18/2021 8:54 AM Cholangiopancreatography MRI 06/18/21 10:27 MRCP CLINICAL HISTORY: epig/ruq pain; elev LFT and bilirubin of 10 TECHNIQUE: Utilizing a 1.5 Tracy magnet and dedicated coil, multiplanar, multiecho imaging of the upper abdomen was performed utilizing heavily T2 weighted pulsing sequences without IV contrast. COMPARISON STUDY: CT of the abdomen and pelvis June 17, 2021. FINDINGS: There is a 5 mm impacted calculus within the distal common bile duct. This results in mild intra and extrahepatic biliary ductal dilatation. Common bile duct measures 9 mm in caliber. There are numerous gallstones within the gallbladder. The gallbladder is distended. There is gallbladder wall thickening. There is a small amount of pericholecystic fluid. There is also fluid within the comfort hepatis. There is no pancreatic ductal dilatation. No hepatic lesions are identified on this unenhanced exam. Unenhanced images of the spleen, adrenal glands and kidneys are normal. There is no hydronephrosis. No abdominal lymphadenopathy is present. Caliber of visualized small and large bowel are normal. No suspicious marrow replacement is identified within visualized skeletal structures. IMPRESSION: 1. 5 mm impacted calculus within the distal common bile duct which results in mild intra and extra hepatic biliary ductal dilatation. 2. Cholelithiasis. In addition, gallbladder wall thickening and pericholecystic fluid. These findings favor acute cholecystitis. ACT 112: Negative or not required by law. Electronically signed by: Yovany Darling M.D. 06/18/2021 12:19 PM Abdomen Ultrasound 06/18/21 10:37 ABDOMINAL ULTRASOUND, RIGHT UPPER QUADRANT HISTORY: elevated liver tests, gallbladder wall thickening. COMPARISON: MRCP 06/18/2021. FINDINGS: Pancreas: The pancreas demonstrates a normal echotexture. The main pancreatic duct is normal in caliber measuring 2 mm. Liver: Mild intrahepatic bile duct dilatation is again noted. No hepatic masses. Gallbladder: Small amount of sludge and stones within the gallbladder. Diffuse gallbladder wall thickening with trace pericardial fluid. Findings likely represent acute cholecystitis. CBD: Dilated up to 1 cm. Right kidney: No hydronephrosis. IMPRESSION: 1. Gallbladder wall thickening with sludge and small stones. This likely represents acute cholecystitis. Surgical consultation recommended. 2. Dilated intra and extrahepatic bile ducts are again noted. The common bile duct stone seen on the same day MRCP is not clearly identified by this examination. ACT 112: Negative or not required by law. Electronically signed by: Scott Morel M.D. 06/18/2021 12:52 PM PG Care Time/CCT Total # of Minutes Spent Total Time Spent with Patient: Total time spent is greater than 50% in coordination of care (as documented) at patient's floor/unit and/or counseling patient: Coding Level of Care Code 93345 Inpt Consult Level 3 Diagnoses Choledocholithiasis K80.50 Transaminitis R74.01 Elevated bilirubin R17 GERD (gastroesophageal reflux disease) K21.9
[2021-06-18] MEDS: PANTOprazole 40 MG TAB PO SCH (21:40)
[2021-06-19] MEDS: MoRPHine SULFATE 4 MG/ML 1 ML CARP\\VIAL IV PRN ×6 (01:40→22:06)
[2021-06-19] MEDS: PIPERACILLIN/TAZOBACTAM 3.375 GM in DEXTROSE 5% 100 ML IV SCH ×3 (05:40→21:55)
[2021-06-19 07:03] LABS: Basophils # (auto) 0.04 K/uL (0-0.2); Basophils % (auto) 0.5 %; Eosinophils # (auto) 0.17 K/uL (0-0.5); Eosinophils % (auto) 2.1 %; Hematocrit (blood only) 36.2 % (42-52); Hemoglobin 13.3 g/dL (14.0-18.0); Immature Granulocytes # (auto) 0.01 K/uL (0.00-0.02); Immature Granulocytes % (auto) 0.1 %; Lymphocytes # (auto) 2.14 K/uL (1.2-3.4); Lymphocytes % (auto) 26.2 %; Mean Corpuscular Hemoglobin 33.3 pg (25-34); Mean Corpuscular Hgb Conc 36.7 g/dL (32-36); Mean Corpuscular Volume 90.5 fL (80-100); Mean Platelet Volume 9.4 fL (7.4-10.4); Monocytes # (auto) 0.86 K/uL (0.11-0.59); Monocytes % (auto) 10.5 %; Neutrophils # (auto) 4.94 K/uL (1.4-6.5); Neutrophils % (auto) 60.6 %; Platelet Count 247 K/uL (130-400); RDW Coefficient of Variation 12.2 % (11.5-14.5); White Blood Count 8.16 K/uL (4.8-10.8)
[2021-06-19 07:40] LABS: Albumin Level 3.1 gm/dl (3.4-5.0); BUN Creatinine Ratio 10.7 (10-20); Calcium 8.8 mg/dl (8.5-10.1); Creatinine Clr Calc Pharmacy 118.5 ml/min; Est GFR (African American) 128.6 ml/min; Potassium 3.8 mmol/L (3.5-5.1)
[2021-06-19 07:45] LABS: Albumin Globulin Ratio 0.9 (0.9-2); Bilirubin,Total 9.7 mg/dl (0.2-1); Globulin 3.5 gm/dl (2.5-4.0); Total Protein 6.6 gm/dl (6.4-8.2)
[2021-06-19] MEDS: PANTOprazole 40 MG TAB PO SCH ×2 (07:56→20:06)
[2021-06-19] MEDS: LACTATED RINGER'S 1,000 ML IV SCH ×2 (08:02→18:04)
[2021-06-19] MEDS ORDERED: INDOMETHACIN 50 MG SUPP PR ONE ×3 (08:09→13:59)
[2021-06-19] MEDS: ONDANSETRON INJ 2 MG/ML 2 ML VIAL IV PRN ×3 (08:20→17:59)
--- NOTE | 2021-06-19 09:35 | Anesthesiology Consultation ---
Date of Service June 19, 2021 Assessment & Plan (1) Encounter for pre-operative examination: Chart Review Chart Review: Acceptable Risk for Surgery and Patient NOT seen in Pre Admission Testing Consults Requested none History Surgery Operation Date: 06/19/21 10:30 Proposed Procedures p Endoscopic Retrograde Cholangiopancreatogram - Alyssa Robin DO Height/Weight Height: 6 ft Weight: 70 kg Allergies Allergy/AdvReac Type Severity Reaction Status Date / Time No Known Allergies Allergy Unverified 06/17/21 22:34 Medications Home Medications Medication Instructions Recorded Confirmed Last Taken No Known Home Medications 06/17/21 06/17/21 Unknown Active Medications Generic Name Dose Route Start Last Admin Trade Name Freq PRN Reason Stop Dose Admin Lactated Ringer's 1,000 mls @ 100 mls/hr 06/18/21 02:02 06/19/21 08:02 Lr IV 07/18/21 02:01 100 mls/hr .Q10H LILIA Administration Piperacillin Sod/Tazobactam 115 mls @ 28.75 mls/hr 06/18/21 06:00 06/19/21 05:40 Sod 3.375 gm/ Dextrose IV 06/28/21 05:59 28.8 mls/hr Q8H LILIA Administration Protocol Morphine Sulfate 4 mg 06/18/21 02:02 06/19/21 08:40 Morphine Sulfate 4 Mg/Ml 1 Ml Carp\Vial IV 07/02/21 02:01 4 mg Q3H PRN Administration Pain (6,7,8,9,10) Ondansetron HCl 4 mg 06/18/21 02:02 06/19/21 08:20 Ondansetron Inj 2 Mg/Ml 2 Ml Vial IV 07/18/21 02:01 4 mg Q4H PRN Administration Nausea And Vomiting Pantoprazole Sodium 40 mg 06/18/21 21:00 06/19/21 07:56 Pantoprazole 40 Mg Tab PO 07/18/21 20:59 40 mg BID LILIA Administration NPO Date Last Intake of Fluids: 06/18/21 Time Last Intake of Fluids: 23:45 Past Medical History Medical History GERD (gastroesophageal reflux disease) Gilbert disease No significant past medical history Stomach ulcer Social History Smoking Status: Current every day smoker tobacco type: e-cigarettes Do You Dip or Chew Tobacco: No Hx Alcohol Use: Yes Alcohol type: hard liquor alcohol intake frequency: a few times a month Hx Substance Use: No Physical Exam Vital Signs Last Vital Signs Temp 36.8 C 06/19/21 07:49 Pulse 55 L 06/19/21 07:49 Resp 16 06/19/21 07:49 BP 110/70 06/19/21 07:49 Pulse Ox 98 06/19/21 07:49 Testing Laboratory Results 06/19/21 06:35 06/19/21 06:35 Urine Color [place] 06/17/21 22:55 Urine Appearance Clear (Clear) 06/17/21 22:55 Urine pH (4.5-7.5) 06/17/21 22:55 Ur Specific [place] > 1.030 (1.000-1.030) H 06/17/21 22:55 Urine Protein (Negative) 06/17/21 22:55 Urine Glucose (UA) (Negative) 06/17/21 22:55 Urine Ketones (Negative) 06/17/21 22:55 Urine Nitrite (Negative) 06/17/21 22:55 Ur Leukocyte Esterase (Negative) 06/17/21 22:55 Urine RBC 0-4 /hpf (0-4) 06/17/21 22:55 Urine WBC 0-5 /hpf (0-5) 06/17/21 22:55 Ur Epithelial Cells 0-5 /lpf (0-5) 06/17/21 22:55
[2021-06-19 09:52] LABS: INR 1.1 (0.9-1.1); Prothrombin Time 11.1 Seconds (9.0-12.0)
--- NOTE | 2021-06-19 09:54 | Surgery Progress Note ---
Date of Service June 19, 2021 Assessment & Plan (1) Choledocholithiasis: (2) Acute cholecystitis: (3) Transaminitis: (4) Abdominal pain: Plan: 21 year-old male presented to ED with acute abdominal pain and had elevated t. bili, LFTS, and jaundice. Subsequent imaging showing acute calculous cholecystitis and choledocholithiasis on MRCP and Ultrasound. Scheduled for ERCP today with Dr. Alyssa Robin. Plan: Patient unsure of what exactly is going on and wants to wait to discuss further treatment plans once his Mother arrives from [place] today. He just is not sure what is going to happen with his upcoming finals and graduation in 2 weeks. Discussed briefly with patient given signs of choledocholithiasis that he will need his gallbladder removed. He seems somewhat irritated and anxious so will wait until his mother arrives to discuss further surgical options. Keep npo Continue IV Fluids Continue IV anbiotics Admission and Anticipated Discharge Date Admission Date: June 18, 2021 Subjective still having pain, slightly worse no nausea or vomiting dark urine, no burning States he is "unsure what he wants to happen other than the procedure today, has finals and graduating in 2 weeks. Mother is traveling up from [place] today and wants to wait until she arrives to discuss further surgical plans" I ( Jacinto Guadalupe MD ) reviewed pt's H/P, labs, MRCP, U/S study with pt and his Mom, I recommend to do laparoscopic cholecystectomy after ERCP at OR, D/W benefits, risks and alternatives of the surgery, the risks - infection, bleeding, injury other organs, pt and his mom understood, pt singed informed consent , I answered all questions, Physical Exam Constitutional: WD/WN, vitals as above no acute distress and not ill appearing Respiratory: normal respiratory effort; no respiratory distress and no labored breathing Gastrointestinal (Abdomen): Inspection/Auscultation: abdomen normal to inspection; abdomen not distended Percussion/Palpation: + abdomen tender (RUQ), + guarding (RUQ) and abdomen soft; abdomen not rigid Skin: no rashes, warm and dry + jaundice Psychiatric: Orientation: alert, oriented x 3 and cooperative Affect: + irritable affect Results & Data ([facility]) Vital Signs (Past 12 Hours) Vital Signs Temp Pulse Resp BP Pulse Ox 06/19/21 07:49 36.8 C 55 L 16 110/70 98 06/18/21 23:30 56 L 06/18/21 23:09 36.8 C 45 L 15 120/71 95 Laboratory Results 06/19/21 06/19/21 06/18/21 Range/Units 06:35 06:35 10:53 WBC 8.16 (4.8-10.8) K/uL RBC 4.00 L (4.7-6.1) M/uL Hgb 13.3 L (14.0-18.0) g/dL Hct 36.2 L (42-52) % MCV 90.5 (80-100) fL MCH 33.3 (25-34) pg MCHC 36.7 H (32-36) g/dL RDW Std Deviation 41.0 (36.4-46.3) fL RDW Coeff of Santy 12.2 (11.5-14.5) % Plt Count 247 (130-400) K/uL MPV 9.4 (7.4-10.4) fL Immature Gran % (Auto) 0.1 % Neut % (Auto) 60.6 % Lymph % (Auto) 26.2 % [place] % (Auto) 10.5 % Eos % (Auto) 2.1 % Baso % (Auto) 0.5 % Neut # (Auto) 4.94 (1.4-6.5) K/uL Lymph # (Auto) 2.14 (1.2-3.4) K/uL [place] # (Auto) 0.86 H (0.11-0.59) K/uL Eos # (Auto) 0.17 (0-0.5) K/uL Baso # (Auto) 0.04 (0-0.2) K/uL Immature Gran # (Auto) 0.01 (0.00-0.02) K/uL Sodium 139 (136-145) mmol/L Potassium 3.8 (3.5-5.1) mmol/L Chloride 103 (98-107) mmol/L Carbon Dioxide 28 (21-32) mmol/L Anion Gap 8.0 (3-11) BUN 10 D (7-18) mg/dl Creatinine 0.96 (0.6-1.4) mg/dl Est Cr Clr Drug Dosing 118.5 ml/min Est GFR ( Amer) 128.6 ml/min Est GFR (Non-Af Amer) 111.0 ml/min BUN/Creatinine Ratio 10.7 (10-20) Glucose 89 (70-99) mg/dl Calcium 8.8 (8.5-10.1) mg/dl Total Bilirubin 9.7 H (0.2-1) mg/dl AST 107 H (15-37) U/L ALT 222 H (12-78) Alkaline Phosphatase 181 H (45-117) U/L Total Protein 6.6 (6.4-8.2) gm/dl Albumin 3.1 L (3.4-5.0) gm/dl Globulin 3.5 (2.5-4.0) gm/dl Albumin/Globulin Ratio 0.9 (0.9-2) EBV Capsid Ag IgG Ab Pending EBV Capsid Ag IgM Ab Pending EBV EA Restrict+Diffuse Pending EBV Nuclear Antigen Ab Pending EBV Antibody Interp Pending Hepatitis A IgM Ab Monoscreen (Negative) 06/18/21 06/18/21 06/18/21 Range/Units 10:53 10:53 10:53 WBC 8.05 (4.8-10.8) K/uL RBC 4.36 L (4.7-6.1) M/uL Hgb 14.1 D (14.0-18.0) g/dL Hct 39.3 L (42-52) % MCV 90.1 (80-100) fL MCH 32.3 (25-34) pg MCHC 35.9 (32-36) g/dL RDW Std Deviation 40.1 (36.4-46.3) fL RDW Coeff of Santy 12.1 (11.5-14.5) % Plt Count 298 (130-400) K/uL MPV 9.6 (7.4-10.4) fL Immature Gran % (Auto) 0.1 % Neut % (Auto) 60.4 % Lymph % (Auto) 23.7 % [place] % (Auto) 15.2 % Eos % (Auto) 0.4 % Baso % (Auto) 0.2 % Neut # (Auto) 4.86 (1.4-6.5) K/uL Lymph # (Auto) 1.91 (1.2-3.4) K/uL [place] # (Auto) 1.22 H (0.11-0.59) K/uL Eos # (Auto) 0.03 (0-0.5) K/uL Baso # (Auto) 0.02 (0-0.2) K/uL Immature Gran # (Auto) 0.01 (0.00-0.02) K/uL Sodium 137 (136-145) mmol/L Potassium 3.8 (3.5-5.1) mmol/L Chloride 103 (98-107) mmol/L Carbon Dioxide 26 (21-32) mmol/L Anion Gap 8.0 (3-11) BUN 18 (7-18) mg/dl Creatinine 1.02 (0.6-1.4) mg/dl Est Cr Clr Drug Dosing 111.5 ml/min Est GFR ( Amer) 119.5 ml/min Est GFR (Non-Af Amer) 103.1 ml/min BUN/Creatinine Ratio 17.2 (10-20) Glucose 92 (70-99) mg/dl Calcium 9.2 (8.5-10.1) mg/dl Total Bilirubin 9.8 H (0.2-1) mg/dl AST 179 H (15-37) U/L ALT 274 H (12-78) Alkaline Phosphatase 180 H (45-117) U/L Total Protein 7.4 D (6.4-8.2) gm/dl Albumin 3.6 (3.4-5.0) gm/dl Globulin 3.8 (2.5-4.0) gm/dl Albumin/Globulin Ratio 0.9 (0.9-2) EBV Capsid Ag IgG Ab EBV Capsid Ag IgM Ab EBV EA Restrict+Diffuse EBV Nuclear Antigen Ab EBV Antibody Interp Hepatitis A IgM Ab Pending Monoscreen (Negative) 06/18/21 Range/Units 10:53 WBC (4.8-10.8) K/uL RBC (4.7-6.1) M/uL Hgb (14.0-18.0) g/dL Hct (42-52) % MCV (80-100) fL MCH (25-34) pg MCHC (32-36) g/dL RDW Std Deviation (36.4-46.3) fL RDW Coeff of Santy (11.5-14.5) % Plt Count (130-400) K/uL MPV (7.4-10.4) fL Immature Gran % (Auto) % Neut % (Auto) % Lymph % (Auto) % [place] % (Auto) % Eos % (Auto) % Baso % (Auto) % Neut # (Auto) (1.4-6.5) K/uL Lymph # (Auto) (1.2-3.4) K/uL [place] # (Auto) (0.11-0.59) K/uL Eos # (Auto) (0-0.5) K/uL Baso # (Auto) (0-0.2) K/uL Immature Gran # (Auto) (0.00-0.02) K/uL Sodium (136-145) mmol/L Potassium (3.5-5.1) mmol/L Chloride (98-107) mmol/L Carbon Dioxide (21-32) mmol/L Anion Gap (3-11) BUN (7-18) mg/dl Creatinine (0.6-1.4) mg/dl Est Cr Clr Drug Dosing ml/min Est GFR ( Amer) ml/min Est GFR (Non-Af Amer) ml/min BUN/Creatinine Ratio (10-20) Glucose (70-99) mg/dl Calcium (8.5-10.1) mg/dl Total Bilirubin (0.2-1) mg/dl AST (15-37) U/L ALT (12-78) Alkaline Phosphatase (45-117) U/L Total Protein (6.4-8.2) gm/dl Albumin (3.4-5.0) gm/dl Globulin (2.5-4.0) gm/dl Albumin/Globulin Ratio (0.9-2) EBV Capsid Ag IgG Ab EBV Capsid Ag IgM Ab EBV EA Restrict+Diffuse EBV Nuclear Antigen Ab EBV Antibody Interp Hepatitis A IgM Ab Monoscreen Negative (Negative) Diagnostic Findings MRCP CLINICAL HISTORY: epig/ruq pain; elev LFT and bilirubin of 10 TECHNIQUE: Utilizing a 1.5 Tracy magnet and dedicated coil, multiplanar, multiecho imaging of the upper abdomen was performed utilizing heavily T2 weighted pulsing sequences without IV contrast. COMPARISON STUDY: CT of the abdomen and pelvis June 17, 2021. FINDINGS: There is a 5 mm impacted calculus within the distal common bile duct. This results in mild intra and extrahepatic biliary ductal dilatation. Common bile duct measures 9 mm in caliber. There are numerous gallstones within the gallbladder. The gallbladder is distended. There is gallbladder wall thickening. There is a small amount of pericholecystic fluid. There is also fluid within the comfort hepatis. There is no pancreatic ductal dilatation. No hepatic lesions are identified on this unenhanced exam. Unenhanced images of the spleen, adrenal glands and kidneys are normal. There is no hydronephrosis. No abdominal lymphadenopathy is present. Caliber of visualized small and large bowel are normal. No suspicious marrow replacement is identified within visualized skeletal structures. IMPRESSION: 1. 5 mm impacted calculus within the distal common bile duct which results in mild intra and extra hepatic biliary ductal dilatation. 2. Cholelithiasis. In addition, gallbladder wall thickening and pericholecystic fluid. These findings favor acute cholecystitis. ABDOMINAL ULTRASOUND, RIGHT UPPER QUADRANT HISTORY: elevated liver tests, gallbladder wall thickening. COMPARISON: MRCP 06/18/2021. FINDINGS: Pancreas: The pancreas demonstrates a normal echotexture. The main pancreatic duct is normal in caliber measuring 2 mm. Liver: Mild intrahepatic bile duct dilatation is again noted. No hepatic masses. Gallbladder: Small amount of sludge and stones within the gallbladder. Diffuse gallbladder wall thickening with trace pericardial fluid. Findings likely represent acute cholecystitis. CBD: Dilated up to 1 cm. Right kidney: No hydronephrosis. IMPRESSION: 1. Gallbladder wall thickening with sludge and small stones. This likely represents acute cholecystitis. Surgical consultation recommended. 2. Dilated intra and extrahepatic bile ducts are again noted. The common bile duct stone seen on the same day MRCP is not clearly identified by this examination. (1) Abdominal pain Abdominal location: unspecified location Qualified Code(s): R10.9 - Unspecified abdominal pain
--- NOTE | 2021-06-19 10:47 | Gastroenterology Progress Note ---
Date of Service June 19, 2021 Assessment & Plan (1) Choledocholithiasis: (2) Transaminitis: Plan: Pt is a 21 yo male, who presented with RUQ abd pain, jaundice, elevated LFTs, abd imaging showed intra/extra hepatic biliary ductal dilation, CBD stone - NPO - Continue Zosyn IV - Surgery following - ERCP by Dr. Alyssa Robin this afternoon in OR Admission and Anticipated Discharge Date Admission Date: June 18, 2021 Supervising Physician Co-Signing Physician Notes I saw and evaluated the patient. We were consulted due to abdominal pain and elevated liver tests. Imaging does indicate an impacted gallstone within the distal common bile duct. We have discussed the risks to include bleeding, infection, failed biliary cannulation, pancreatitis (increased risk due to young age of the patient), and the need for follow-up studies. Plan ERCP today will likely place a biliary stent Indocin suppository to be given Subjective Pt is having RUQ abd pain, no n/v. + Jaundice, elevated LFTs Review of Systems Review of Systems: All systems reviewed & are unremarkable except as noted in HPI & below Physical Exam Constitutional: WD/WN, vitals as above well groomed, cooperative and comfortable Eyes: PERRLA, EOMs, icteric sclera ENMT: external ear and nose normal, oropharynx normal Respiratory: normal respiratory effort, lungs clear to auscultation Cardiovascular: RRR, no murmur, no edema Gastrointestinal (Abdomen): BS hypoactive, RUQ TTP, soft Skin: no rashes, warm and dry + jaundice Psychiatric: A+Ox3, euthymic affect Lymphatic: no lymphedema Results & Data ([facility]) Vital Signs (Past 12 Hours) Vital Signs Temp Pulse Resp BP Pulse Ox 06/19/21 07:49 36.8 C 55 L 16 110/70 98 06/18/21 23:30 56 L 06/18/21 23:09 36.8 C 45 L 15 120/71 95 Diagnostic Findings MRCP CLINICAL HISTORY: epig/ruq pain; elev LFT and bilirubin of 10 TECHNIQUE: Utilizing a 1.5 Tracy magnet and dedicated coil, multiplanar, multiecho imaging of the upper abdomen was performed utilizing heavily T2 weighted pulsing sequences without IV contrast. COMPARISON STUDY: CT of the abdomen and pelvis June 17, 2021. FINDINGS: There is a 5 mm impacted calculus within the distal common bile duct. This results in mild intra and extrahepatic biliary ductal dilatation. Common bile duct measures 9 mm in caliber. There are numerous gallstones within the gallbladder. The gallbladder is distended. There is gallbladder wall thickening. There is a small amount of pericholecystic fluid. There is also fluid within the comfort hepatis. There is no pancreatic ductal dilatation. No hepatic lesions are identified on this unenhanced exam. Unenhanced images of the spleen, adrenal glands and kidneys are normal. There is no hydronephrosis. No abdominal lymphadenopathy is present. Caliber of visualized small and large bowel are normal. No suspicious marrow replacement is identified within visualized skeletal structures. IMPRESSION: 1. 5 mm impacted calculus within the distal common bile duct which results in mild intra and extra hepatic biliary ductal dilatation. 2. Cholelithiasis. In addition, gallbladder wall thickening and pericholecystic fluid. These findings favor acute cholecystitis.
[2021-06-19] MEDS ORDERED: BACITRACIN OINT 15 GM TUBE ONE (13:19)
[2021-06-19] MEDS ORDERED: LIDOCAINE 1% LOCAL 20 ML VIAL ONE (13:19)
[2021-06-19] MEDS ORDERED: BUPIVACAINE 0.5 % 5 MG/1 ML MPF 30ML VIAL ONE (13:19)
--- NOTE | 2021-06-19 14:12 | History & Physical Bridge Note ---
Date of Service June 19, 2021 History & Physical Bridge Note I have examined the patient, reviewed the History & Physical and in the interval since the performance of the History & Physical I have noted the following changes of clinical significance: no changes noted Supervising Physician Co-Signing Physician Notes I saw and evaluated the patient. We were consulted due to abdominal pain and elevated liver tests. Imaging does indicate an impacted gallstone within the distal common bile duct. We have discussed the risks to include bleeding, infection, failed biliary cannulation, pancreatitis (increased risk due to young age of the patient), and the need for follow-up studies. Plan ERCP today will likely place a biliary stent Indocin suppository to be given
[2021-06-19] MEDS ORDERED: PROPOFOL IV EMULSION 10 MG/ML 20 ML VIAL IV ONE ×2 (14:14→14:15)
[2021-06-19] MEDS ORDERED: ONDANSETRON INJ 2 MG/ML 2 ML VIAL ONE ×2 (14:15→16:06)
[2021-06-19] MEDS ORDERED: MIDAZOLAM HCL 1 MG/ML 2ML VIAL ONE ×2 (14:15→14:35)
[2021-06-19] MEDS ORDERED: NEOSTIGMINE METHYLSULFATE 1 MG/ML 10ML VIAL ONE (14:15)
[2021-06-19] MEDS ORDERED: fentaNYL citrate 100 MCG/2 ML VIAL ONE ×3 (14:15→17:16)
[2021-06-19] MEDS ORDERED: GLYCOPYRROLATE 0.2 MG/ML VIAL ONE ×2 (14:15→15:08)
[2021-06-19] MEDS ORDERED: LIDOCAINE 2% 2 ML VIAL/AMP(20MG/ML) INFIL ONE (14:15)
[2021-06-19] MEDS ORDERED: DEXAMETHASONE SOD INJ 4 MG/ML VIAL ONE (14:15)
--- NOTE | 2021-06-19 15:06 | GI REPORT ---
Patient Name: Mauricio Carpio Procedure Date: 06/19/2021 1:33 PM Date of : 2000 Admit Type: Inpatient Age: 21 Gender: Male Attending MD: Alyssa Robin DO Procedure: ERCP Providers: Alyssa Robin DO Referring MD: Hayley Sotelo Md Indications: Abdominal pain of suspected biliary origin, Elevated liver enzymes Medicines: General Anesthesia Complications: No immediate complications. Estimated blood loss: Minimal. Estimated Blood Loss: Estimated blood loss was minimal. Procedure: Pre-Anesthesia Assessment: - Prior to the procedure, a History and Physical was performed, and patient medications, allergies and sensitivities were reviewed. The patient's tolerance of previous anesthesia was reviewed. - The risks and benefits of the procedure and the sedation options and risks were discussed with the patient. All questions were answered and informed consent was obtained. - Patient identification and proposed procedure were verified prior to the procedure by the physician, the nurse and the pharmacy scheduler. The procedure was verified in the procedure room. - Pre-procedure physical examination revealed no contraindications to sedation. - ASA Grade Assessment: II - A patient with mild systemic disease. - After reviewing the risks and benefits, the patient was deemed in satisfactory condition to undergo the procedure. - The anesthesia plan was to use general anesthesia. - Immediately prior to administration of medications, the patient was re-assessed for adequacy to receive sedatives. - The heart rate, respiratory rate, oxygen saturations, blood pressure, adequacy of pulmonary ventilation, and response to care were monitored throughout the procedure. - The physical status of the patient was re-assessed after the procedure. After obtaining informed consent, the scope was passed under direct vision. Throughout the procedure, the patient's blood pressure, pulse, and oxygen saturations were monitored continuously. The Duodenoscope was introduced through the mouth, and advanced to the duodenum and used to inject contrast into the bile duct. The ERCP was accomplished without difficulty. The patient tolerated the procedure well. Findings: The master steam yacht film was normal. The esophagus was successfully intubated under direct vision without detailed examination of the pharynx, larynx, and associated structures, and upper GI tract. The upper GI tract was grossly normal. The major papilla was normal. The bile duct was deeply cannulated with the short-nosed traction sphincterotome and guidewire after switching from a Cook Omni with 0.035 in Acrobat 2 guidewire to an Rx39 with a 0.025 in Jag guidewire. The PD was not cannulated or injected today. Contrast was injected. I personally interpreted the bile duct images. Contrast extended to the entire biliary tree. The biliary orifice was stenotic. This appeared benign. The lower third of the main bile duct contained filling defect(s) thought to be a stone. Biliary sphincterotomy was made with a monofilament Dreamtome sphincterotome using ERBE electrocautery. There was no post-sphincterotomy bleeding. To discover objects, the biliary tree was swept with an 11.5 mm balloon starting at the bifurcation. One pale pigmented stone with sludge was removed. No stones remained. One 10 Fr by 8 cm biliary stent with a single external flap and a single internal flap was placed 7.5 cm into the common bile duct. Bile flowed through the stent. The stent was in good position. The endoscope was withdrawn from the patient. Indomethacin 100 mg was given via suppository to decrease the risk of post-ERCP pancreatitis (PEP). Impression: - The major papilla appeared normal. - Biliary papillary stenosis, benign. - Choledocholithiasis and sludge was found. Complete removal was accomplished by biliary sphincterotomy and balloon extraction. - One biliary stent was placed into the common bile duct. - Indomethacin given to decrease risk of post-ERCP pancreatitis. Recommendation: - Repeat ERCP in 6 weeks to remove stent. - Cholecystectomy as planned by General Surgery - Please avoid NSAIDS for 1 week. Alyssa Robin D.O. Alyssa Robin, 06/19/2021 3:06:10 PM This report has been signed electronically. Note Initiated On: 06/19/2021 1:33 PM Number of Addenda: 0 I attest to the content of the Intraoperative Record and orders documented therein, exceptions below {[id number]}
--- NOTE | 2021-06-19 15:07 | Post Operative Brief Note ---
Immediate Post Op Note v1 Date of Surgery June 19, 2021 Pre & Post Diagnosis Operation Date: 06/19/21 10:30 Pre-Op Diagnosis: CHOLEDOCHOLITHIASIS Post-Op Diagnosis: CHOLEDOCHOLITHIASIS I identified the patient and participated in the time-out.: Yes Procedure Operation Date: 06/19/21 10:30 Actual Procedures p Endoscopic Retrograde Cholangiopancreatogram(Not Applicable) - Alyssa Robin DO Surgeon Alyssa Robin DO Pigment Weigher None Estimated Blood Loss 0 Findings Consistent with Post-Op Diagnosis
[2021-06-19] MEDS ORDERED: ePHEDrine sulfate 50 MG/ML SYR ONE (15:09)
[2021-06-19] MEDS ORDERED: CISATRACURIUM BESYLATE IV SOLN 2 MG/ML 10 ML VIAL IV ONE (15:09)
--- NOTE | 2021-06-19 15:09 | Communication Note ---
Date of Service: June 19, 2021 Patient underwent ERCP this afternoon without initial complication. An obstructing stone was seen in the distal CBD, this was removed with a balloon af ter a biliary sphincterotomy was completed. A biliary stent was placed due to the patient profound jaundice. Recomendations: ERCP for stent removal in 6 weeks Cholecystectomy as planned by Dr. Collins Carbajal a 10 day course of Abx Avoid NSAIDS for 1 week please May have clear liquids today.
--- NOTE | 2021-06-19 16:02 | Fluoroscopy Report ---
[place] ERCP biliary ductal CLINICAL HISTORY: ERCP IN OR COMPARISON STUDY: MRCP and right upper quadrant ultrasound June 18, 2021. FLUOROSCOPY TIME: 1 minute and 1 second. FLUOROSCOPIC IMAGES: 6 FINDINGS: Fluoroscopy was provided during ERCP. Common bile duct was cannulated. Balloon sweep throug h the common bile duct was performed. Placement of a biliary stent is noted. Stent appears appropriat jerry positioned. The intrahepatic bile ducts are not significant opacified. IMPRESSION: Fluoroscopy provided during ERCP with placement of a common bile duct stent. ACT 112: Negative or not required by law. Electronically signed by: Yovany Darling M.D. 06/19/2021 4:01 PM
--- NOTE | 2021-06-19 16:57 | Post Operative Brief Note ---
Immediate Post Op Note v1 Date of Surgery June 19, 2021 Pre & Post Diagnosis Operation Date: 06/19/21 10:30 Pre-Op Diagnosis: Acute Cholecystitis, cholelithiasis Post-Op Diagnosis: Acute Cholecystitis, cholelithiasis I identified the patient and participated in the time-out.: Yes Procedure Operation Date: 06/19/21 10:30 Actual Procedures p Endoscopic Retrograde Cholangiopancreatogram(Not Applicable) - DO elissa Mendoza Laparoscopic Cholecystectomy(Not Applicable) - Jacinto Guadalupe MD Surgeon Jacinto Guadalupe MD Crane Manager YEE Adamson Estimated Blood Loss 10 Findings Consistent with Post-Op Diagnosis significant inflammation on gallbladder wall, Fluids 1500ml Specimens gallbladder Anesthesia Type General Complications none Disposition Accompanied Patient To Recovery: Yes
[2021-06-19] MEDS ORDERED: ePHEDrine sulfate 50 MG/ML AMP IV PRN (17:15)
[2021-06-19] MEDS ORDERED: ONDANSETRON INJ 2 MG/ML 2 ML VIAL IV PRN (17:15)
[2021-06-19] MEDS ORDERED: ATROPINE SULFATE 0.1 MG/ML 10ML SYR IV PRN (17:15)
[2021-06-19] MEDS: fentaNYL citrate 100 MCG/2 ML VIAL IV PRN ×2 (17:17→17:23)
--- NOTE | 2021-06-19 17:24 | Hospitalist Progress Note ---
Date of Service June 19, 2021 Assessment & Plan (1) Choledocholithiasis: Plan: - Pt with findings of impacted 5mm gallstone in CBD --for ERCP and subsequent cholecystectomy later today - empirically on Zosyn (2) Acute cholecystitis: Plan: For cholecystectomy following ERCP today On empiric Zosyn (3) Transaminitis: Plan: - Due to #1 - Anticipate resolution following stone extraction-- will follow labs (4) Elevated bilirubin: Plan: - Documented h/o Gilbert's; however, pt also currently has an obstructive process which can cause hyperbilirubinemia-- will follow labs (5) GERD (gastroesophageal reflux disease): Plan: - Continue Protonix BID Admission and Anticipated Discharge Date Admission Date: June 18, 2021 Subjective Patient seen on daily rounds today. Hospitalized 06/18 with acute choledocholithiasis/acute cholecystitis. CT scan of the abdomen and pelvis showed diffuse gallbladder wall thickening with pericholecystic fluid and common bile duct dilatation MRCP consistent with 5 mm impacted calculus in the common bile duct Plan: ERCP and cholecystectomy but he initially was refusing any intervention until his mother could be at bedside. After discussion with him the importance of intervention, he is agreeable. Still having abdominal pain requiring IV pain medication but denies fevers, chills, nausea or vomiting. Review of Systems Review of Systems: All systems reviewed and are unremarkable except as noted in HPI and below Denies fevers, chills, headache, nasal congestion, sore throat, cough, chest pain, shortness of breath, palpitations, orthopnea, PND, nausea, vomiting, diarrhea, constipation, dysuria, hematuria, frequency, back pain, joint pain or swelling, easy bruising or bleeding, skin lesions or rashes. Physical Exam Physical Exam: General: Resting comfortably in his hospital bed. Does not appear ill or toxic HEENT: Head is AT/NC buccal mucosa is moist and pink Neck: No JVD. Negative hepatojugular reflex Cardiac: RRR without M/G/R Lungs: CTA without W/R/R Abdomen: Normoactive X4. Soft and exquisitely tender in the right upper quadrant and epigastrium Extremities: No peripheral clubbing cyanosis or edema Neuro: A&O X4 cranial nerves II through XII are grossly intact no focal neuro deficits Skin: Difficult to assess for jaundice as lights are off and he refuses to have me turn them on. But with a bilirubin of over 10, I would suspect that he is jaundiced. Psych: Appropriate affect pleasant and cooperative Results & Data Results & Data ([facility]) Vital Signs (Past 12 Hours) Vital Signs Temp Pulse Resp BP Pulse Ox 06/19/21 13:22 37.2 C 56 L 20 105/66 100 06/19/21 07:49 36.8 C 55 L 16 110/70 98 Laboratory Results 06/19/21 06:35 06/19/21 06:35 Total bilirubin: 10.3 AST: 270 ALT: 300 Lipase: 94 PG Care Time/CCT Total # of Minutes Spent Total Time Spent with Patient: Total time spent is greater than 50% in coordination of care (as documented) at patient's floor/unit and/or counseling patient: Coding Level of Care Code 91105 Subseq Hosp Care Lvl 2 Diagnoses Choledocholithiasis K80.50 Transaminitis R74.01 Elevated bilirubin R17 GERD (gastroesophageal reflux disease) K21.9 Acute cholecystitis K81.0
--- NOTE | 2021-06-19 17:49 | Anesthesiology Progress Note ---
Date of Service June 19, 2021 Anesthesia Post Procedure Vital Signs Vital Signs: Temp Pulse Pulse Resp BP Pulse Ox 06/19/21 17:45 36.2 C L 59 L 18 131/80 98 06/19/21 17:35 60 20 125/76 98 06/19/21 17:25 63 22 121/77 99 06/19/21 17:15 90 22 136/80 100 06/19/21 17:09 36.5 C 96 H 20 139/81 100 06/19/21 13:22 37.2 C 56 L 20 105/66 100 06/19/21 07:49 36.8 C 55 L 16 110/70 98 06/18/21 23:30 56 L 06/18/21 23:09 36.8 C 45 L 15 120/71 95 Pain Intensity Abdomen: Pain Intensity: 5 Transfer of Care Handoff Completed per policy Notes Mental Status: alert / awake / arousable and participated in evaluation Patient Amnestic to Procedure: Yes Nausea / Vomiting: adequately controlled Pain: adequately controlled Airway Patency, RR, SpO2: stable & adequate BP & HR: stable & adequate Hydration State: stable & adequate Anesthetic Complications: no major complications apparent and Pt Satisfied with anesthetic care
[2021-06-19] MEDS ORDERED: HYDROmorphone INJ 1 MG/ML SYRINGE IV STA (18:49)
[2021-06-20] MEDS: MoRPHine SULFATE 4 MG/ML 1 ML CARP\\VIAL IV PRN ×2 (01:55→05:12)
--- NOTE | 2021-06-20 02:01 | Operative Report (OR) ---
DATE OF SURGERY: 06/19/2021. PREOPERATIVE DIAGNOSES: Acute cholecystitis, cholelithiasis. POSTOPERATIVE DIAGNOSES: Acute cholecystitis, cholelithiasis. OPERATION: Laparoscopic cholecystectomy. SURGEON: Jacinto Guadalupe MD ANTHROPOLOGY PROFESSOR: Carmencita Stephens PA-C ANESTHESIA: General. ESTIMATED BLOOD LOSS: About 10 mL. FINDINGS: Significant inflammation on the gallbladder wall, gallbladder wall thickening, edema, conf irmed diagnosis of acute cholecystitis with cholelithiasis. COMPLICATIONS: None. INDICATIONS FOR THE PROCEDURE: This is a 21-year-old gentleman who presented to the ED with severe a bdominal pain and the patient had CT scan and ultrasound diagnosis of acute cholecystitis and choleli thiasis, and I recommended to do a laparoscopic cholecystectomy. I did talk to the patient and the p atient's mom about the benefits, risks, and alternate procedures. I indicated the risks may include, but not limited to, such as bleeding, infection, injury to other organs, incisional hernia, may need more procedure. The patient and the patient's mom understand. The patient signed informed consent and I answered all questions. DETAILS OF PROCEDURE: After we identified the patient and verified the procedure, the patient went t o the OR and the patient had an ERCP done by the GI doctor and then came in after they finished ER. The patient is already on the OR table with general anesthesia. The abdomen was prepped and draped in routine sterile fashion. After timeout, I injected the local anesthesia by using 1% lidocaine mixed with 0.5% Marcaine just above the umbilicus. Then, I made a small incision just above the umbilicus , opened fascia, opened peritoneum. Under direct vision, put a Jefry trocar in, connected to CO2 to create pneumoperitoneum, flow rate at 6 liters per minute, pressure not more than 14 mmHg. Once we got a nice pneumoperitoneum, we put a camera in, looked around the abdomen. It showed normal finding on the liver; however, the gallbladder showed significant inflammation in the gallbladder wall, gall bladder wall thickening, edema, confirmed diagnosis of acute cholecystitis. Then, we put another two 5 mm trocars on the right upper quadrant, one 12 trocar on the epigastric area. Once all trocars in , because of the gallbladder significant inflammation with distention, we used a large needle to deco mpress the gallbladder first. Then, we used the grasper to hold the base of gallbladder, put directi on to the diaphragm, another grasper to hold the pouch of gallbladder, put the latter to explore the triangle of Calot. The cystic duct was identified and mobilized. I put two 10 mm metal clips on the proximal cystic duct, one on the distal cystic duct, then used a scissor for transection of cystic d uct; rechecked, no bile leak. Then, the cystic artery was identified and mobilized. I put two 5 mm metal clips on the proximal cystic artery and one on the distal cystic artery, then used a scissor fo r transection of cystic artery, rechecked, and no active bleeding. Then, we used the Bovie to take d own gallbladder from liver bed. Rechecked, no active bleeding, no bile leak from liver bed. Then, w e removed gallbladder through the catch bag. Then, we reinserted the Jefry trocar in, connected to CO2 to create pneumoperitoneum, again looked a round the abdomen, no bile leak and no active bleeding from the liver bed. Then, we removed all troc ars under direct vision. No active bleeding from the trocar site. Pneumoperitoneum was released. T hen I closed the umbilical incision fascial layer by using 0 Vicryl [id number] x2, closed subcut aneous layer by using 2-0 Vicryl interruptedly, closed skin by using 4-0 Vicryl continuous running, c losed another two 5 mm trocar sites skin only by using 4-0 Vicryl. Closed the epigastric incision, t he fascial layer by using 0 Vicryl [id number] x2, closed subcutaneous layer by using 2-0 Vicryl interruptedly, closed skin by using 4-0 Vicryl interruptedly. Then, we put the dressing on. The pat ient tolerated the procedure well. All instrument, needle and sponge counts were correct x2 at the e nd of the case. The patient was transferred to recovery room in stable condition. The specimen was sent to pathology. After the procedure, I did talk to the patient's mom about the OR finding and the procedure we did, she understands. The first cook, Carmencita, was necessary for this procedure. Her role was to hold the camera, retraction, and exposure. Job ID: [id number]
[2021-06-20] MEDS: ONDANSETRON INJ 2 MG/ML 2 ML VIAL IV PRN (02:38)
[2021-06-20] MEDS: LACTATED RINGER'S 1,000 ML IV SCH (04:31)
[2021-06-20] MEDS: PIPERACILLIN/TAZOBACTAM 3.375 GM in DEXTROSE 5% 100 ML IV SCH ×2 (05:41→12:44)
[2021-06-20 07:52] LABS: Basophils # (auto) 0.01 K/uL (0-0.2); Basophils % (auto) 0.1 %; Eosinophils # (auto) 0.04 K/uL (0-0.5); Eosinophils % (auto) 0.5 %; Hematocrit (blood only) 33.9 % (42-52); Hemoglobin 12.3 g/dL (14.0-18.0); Immature Granulocytes # (auto) 0.01 K/uL (0.00-0.02); Immature Granulocytes % (auto) 0.1 %; Lymphocytes % (auto) 23.4 %; Mean Corpuscular Hemoglobin 32.7 pg (25-34); Mean Corpuscular Hgb Conc 36.3 g/dL (32-36); Mean Corpuscular Volume 90.2 fL (80-100); Mean Platelet Volume 9.7 fL (7.4-10.4); Monocytes # (auto) 1.15 K/uL (0.11-0.59); Monocytes % (auto) 13.5 %; Neutrophils # (auto) 5.34 K/uL (1.4-6.5); Neutrophils % (auto) 62.4 %; Platelet Count 233 K/uL (130-400); RDW Coefficient of Variation 12.1 % (11.5-14.5); Red Blood Count 3.76 M/uL (4.7-6.1); White Blood Count 8.55 K/uL (4.8-10.8)
[2021-06-20] MEDS ORDERED: oxyCODONE HCL IR 5 MG TAB (IMMEDIATE RELEASE) PO PRN ×3 (07:58→10:53)
[2021-06-20] MEDS: PANTOprazole 40 MG TAB PO SCH (08:27)
[2021-06-20 08:28] LABS: BUN Creatinine Ratio 9.1 (10-20); Bilirubin Direct 1.1 mg/dl (0-0.2); Calcium 8.8 mg/dl (8.5-10.1); Creatinine Clr Calc Pharmacy 135.4 ml/min; Est GFR (Non-African American) 123.4 ml/min; Potassium 3.7 mmol/L (3.5-5.1)
[2021-06-20 08:59] LABS: Albumin Globulin Ratio 0.9 (0.9-2); Bilirubin,Total 3.5 mg/dl (0.2-1); Globulin 3.5 gm/dl (2.5-4.0); Total Protein 6.5 gm/dl (6.4-8.2)
--- NOTE | 2021-06-20 10:00 | Surgery Progress Note ---
Date of Service June 20, 2021 Assessment & Plan (1) Choledocholithiasis: (2) Acute cholecystitis: (3) Transaminitis: (4) Abdominal pain: Plan: POD # 1 s/p ERCP with biliary sphincterotomy and common bile duct stent placement and laparoscopic cholecystectomy -afebrile, vss - no leukocytosis - moderate to severe postop pain (requiring multiple doses of IV morhpine 4 mg (x4) and 1 dose of IV dilaudid 1 mg) - + nausea - + jaundice , slightly improved - t. bili and lfts improving Plan: Continue current pain management Encouraged ambulation incentive spirometer Continue IV fluids will need CD burned for records GI to schedule biliary stent removal in 6 weeks monitor t. bili and lfts Patient seen later in morning by vinny Fernandez for discharge Discharge instructions provided in chart follow-up with surgical office when back in [facility] after [place] break Dr. Guadalupe has seen and examined pt, agrees with above Admission and Anticipated Discharge Date Admission Date: June 18, 2021 Subjective when asked how is he doing he replied "I've had better days" Pain currently 8/10, just had Oxycodone about 20 minutes ago. Preop pain resolved now having post surgical pain Nausea last night, no vomiting urinating without difficulty, urine looks better not as dark not passing gas but feeling like he has to but cannot feeling bloated tolerating clear liquids Physical Exam Constitutional: WD/WN, vitals as above no acute distress Respiratory: normal respiratory effort; no respiratory distress and no labored breathing Gastrointestinal (Abdomen): Inspection/Auscultation: abdomen normal to inspection, + abdomen distended (mild), normal bowel sounds and + abdominal surgical incision (covered with dry dressings) Percussion/Palpation: + abdomen tender (RUQ at incision sites ) and + guarding (voluntary at incision sites and RUQ); abdomen not rigid and + abdomen not soft Skin: no rashes, warm and dry + jaundice Psychiatric: Orientation: alert and oriented x 3 Results & Data ([facility]) Vital Signs (Past 12 Hours) Vital Signs Temp Pulse Resp BP Pulse Ox 06/20/21 07:48 36.5 C 49 L 16 108/68 99 06/20/21 04:05 36.8 C 52 L 16 107/65 98 06/19/21 22:45 36.9 C 73 16 117/70 96 Laboratory Results 06/20/21 06/20/21 06/19/21 Range/Units 07:30 07:30 09:13 WBC 8.55 (4.8-10.8) K/uL RBC 3.76 L (4.7-6.1) M/uL Hgb 12.3 L (14.0-18.0) g/dL Hct 33.9 L (42-52) % MCV 90.2 (80-100) fL MCH 32.7 (25-34) pg MCHC 36.3 H (32-36) g/dL RDW Std Deviation 40.0 (36.4-46.3) fL RDW Coeff of Santy 12.1 (11.5-14.5) % Plt Count 233 (130-400) K/uL MPV 9.7 (7.4-10.4) fL Immature Gran % (Auto) 0.1 % Neut % (Auto) 62.4 % Lymph % (Auto) 23.4 % [place] % (Auto) 13.5 % Eos % (Auto) 0.5 % Baso % (Auto) 0.1 % Neut # (Auto) 5.34 (1.4-6.5) K/uL Lymph # (Auto) 2.00 (1.2-3.4) K/uL [place] # (Auto) 1.15 H (0.11-0.59) K/uL Eos # (Auto) 0.04 (0-0.5) K/uL Baso # (Auto) 0.01 (0-0.2) K/uL Immature Gran # (Auto) 0.01 (0.00-0.02) K/uL PT 11.1 (9.0-12.0) Seconds INR 1.1 (0.9-1.1) Sodium 139 (136-145) mmol/L Potassium 3.7 (3.5-5.1) mmol/L Chloride 101 (98-107) mmol/L Carbon Dioxide 30 (21-32) mmol/L Anion Gap 7.0 (3-11) BUN 8 (7-18) mg/dl Creatinine 0.84 (0.6-1.4) mg/dl Est Cr Clr Drug Dosing 135.4 ml/min Est GFR ( Amer) 143.0 ml/min Est GFR (Non-Af Amer) 123.4 ml/min BUN/Creatinine Ratio 9.1 L (10-20) Glucose 106 H (70-99) mg/dl Calcium 8.8 (8.5-10.1) mg/dl Total Bilirubin 3.5 H D (0.2-1) mg/dl Direct Bilirubin 1.1 H (0-0.2) mg/dl AST 57 H (15-37) U/L ALT 178 H (12-78) Alkaline Phosphatase 160 H (45-117) U/L Total Protein 6.5 (6.4-8.2) gm/dl Albumin 3.0 L (3.4-5.0) gm/dl Globulin 3.5 (2.5-4.0) gm/dl Albumin/Globulin Ratio 0.9 (0.9-2) Lipase 242 (73-393) U/L Hepatitis A IgM Ab (NON-REACTIVE) 06/18/21 Range/Units 10:53 WBC (4.8-10.8) K/uL RBC (4.7-6.1) M/uL Hgb (14.0-18.0) g/dL Hct (42-52) % MCV (80-100) fL MCH (25-34) pg MCHC (32-36) g/dL RDW Std Deviation (36.4-46.3) fL RDW Coeff of Santy (11.5-14.5) % Plt Count (130-400) K/uL MPV (7.4-10.4) fL Immature Gran % (Auto) % Neut % (Auto) % Lymph % (Auto) % [place] % (Auto) % Eos % (Auto) % Baso % (Auto) % Neut # (Auto) (1.4-6.5) K/uL Lymph # (Auto) (1.2-3.4) K/uL [place] # (Auto) (0.11-0.59) K/uL Eos # (Auto) (0-0.5) K/uL Baso # (Auto) (0-0.2) K/uL Immature Gran # (Auto) (0.00-0.02) K/uL PT (9.0-12.0) Seconds INR (0.9-1.1) Sodium (136-145) mmol/L Potassium (3.5-5.1) mmol/L Chloride (98-107) mmol/L Carbon Dioxide (21-32) mmol/L Anion Gap (3-11) BUN (7-18) mg/dl Creatinine (0.6-1.4) mg/dl Est Cr Clr Drug Dosing ml/min Est GFR ( Amer) ml/min Est GFR (Non-Af Amer) ml/min BUN/Creatinine Ratio (10-20) Glucose (70-99) mg/dl Calcium (8.5-10.1) mg/dl Total Bilirubin (0.2-1) mg/dl Direct Bilirubin (0-0.2) mg/dl AST (15-37) U/L ALT (12-78) Alkaline Phosphatase (45-117) U/L Total Protein (6.4-8.2) gm/dl Albumin (3.4-5.0) gm/dl Globulin (2.5-4.0) gm/dl Albumin/Globulin Ratio (0.9-2) Lipase (73-393) U/L Hepatitis A IgM Ab NON-REACTIVE (NON-REACTIVE) (1) Abdominal pain Abdominal location: unspecified location Qualified Code(s): R10.9 - Unspecified abdominal pain
--- NOTE | 2021-06-20 10:27 | Gastroenterology Progress Note ---
Date of Service June 20, 2021 Assessment & Plan (1) Choledocholithiasis: (2) Transaminitis: Plan: Pt is a 21 yo male, who presented with RUQ abd pain, jaundice, elevated LFTs, abd imaging showed intra/extra hepatic biliary ductal dilation, CBD stone He is s/p ERCP on 12 w choledocholithiasis removal, biliary sphincterectomy, biliary stent placement; followed by lap cholecystectomy LFTs trending down. - Advance diet as tolerated - Continue antibiotics coverage for at least 10 days - Avoid NSAIDs and high dose ASA at least 1 week after biliary sphincterectomy - Repeat ERCP in 6 week's time for biliary stent removal - Trend LFTs - Pls recall GI prn Admission and Anticipated Discharge Date Admission Date: June 18, 2021 Supervising Physician Co-Signing Physician Notes Patient doing well this morning after ercp and lap cholecsytectomy. Surgical scars on abdomen Labs down trending Agree with further plan of care as above. Subjective Pt report having abd pain still, no fever, chills, n/v overnight LFTs trending down Review of Systems Review of Systems: All systems reviewed & are unremarkable except as noted in HPI & below Physical Exam Constitutional: WD/WN, vitals as above well groomed, cooperative and comfortable ENMT: external ear and nose normal, oropharynx normal Respiratory: normal respiratory effort, lungs clear to auscultation Cardiovascular: RRR, no murmur, no edema Skin: no rashes, warm and dry + jaundice Psychiatric: A+Ox3, euthymic affect Lymphatic: no lymphedema Results & Data ([facility]) Vital Signs (Past 12 Hours) Vital Signs Temp Pulse Resp BP Pulse Ox 06/20/21 07:48 36.5 C 49 L 16 108/68 99 06/20/21 04:05 36.8 C 52 L 16 107/65 98 06/19/21 22:45 36.9 C 73 16 117/70 96
[2021-06-20 11:29] VITALS: BP 112/71; PULSE 55; TEMP 97.9; O2SAT 98
[2021-06-20 12:26] LABS: EBV Nuclear Ag Antibody >600.00 U/mL; EBV Virus Capsid Ag IgG Ab <18.00 U/mL; Epstein Barr Virus Early Ag Ab <9.00 U/mL
--- NOTE | 2021-06-20 18:44 | Discharge Summary ---
Date of Service June 20, 2021 Admission HPI Per Admitting Provider 21 yr old man presents with abdominal pain since Saturday. Diffuse, generalized, worse in epigastrium and sternal area, radiates to back, sharp/ stabbing at times. 10/10 in severity. Associated with nausea, vomiting, dry heaves. [place] short of breath and had chills after throwing up. Unable to even keep down clear liquids. No similar episodes in the past. Noticed his urine was darker, more dark orange colored. Having some constipation. Called his GI doctor who increased his pantoprazole to twice daily, added carafate and zofran. Feels he got somewhat worse with this. In the past, saw GI and had an endoscopy showing an ulcer. Was treated with daily pantoprazole. Also has known Gilbert's disease with mild elevation of bilirubin. Denies any recent alcohol or drug use. Notes he smokes, but not recently. Has had a hepatitis panel in the past which was negative. Due to graduate next week with final exams upcoming. Principal Diagnosis 1. Acute choledocholithiasiss/p ERCP 2. Acute cholecystitiss/p cholecystectomy 3. Abnormal LFTssecondary to #1 and downtrending 4. Jaundicesecondary to #1 Discharge Exam General: Resting comfortably in his hospital bed. NAD. HEENT: Head is AT/NC buccal mucosa is moist and pink Neck: No JVD. Negative hepatojugular reflex Cardiac: RRR without M/G/R Lungs: CTA without W/R/R Abdomen: Normoactive X4. Mildly tender but mostly incisional site pain. Otherwise no deep tenderness Extremities: No peripheral clubbing cyanosis or edema Neuro: A&O X4 cranial nerves II through XII are grossly intact no focal neuro deficits Skin: No obvious skin lesions or rashes Psych: Appropriate affect pleasant and cooperative Discharge Data Allergies Allergy/AdvReac Type Severity Reaction Status Date / Time No Known Allergies Allergy Unverified 06/17/21 22:34 Consultations 06/18/21 00:51 ED Decision to Admit Stat 06/18/21 02:02 Consult Gastroenterology Routine 06/18/21 11:08 Consult Internal Medicine Routine 06/20/21 09:22 Burn CD for patient Routine Procedures Performed Operation Date: 06/19/21 10:30 Actual Procedures p Endoscopic Retrograde Cholangiopancreatogram(Not Applicable) - DO elissa Mendoza Laparoscopic Cholecystectomy(Not Applicable) - Jacinto Guadalupe MD Ordered Studies 06/17/21 22:36 CT abd pelvis IV con only Urgent IMPRESSION: Diffuse gallbladder wall thickening with trace pericholecystic fluid. There is also mild intra and extra hepatic bile duct dilatation. No obstructing stones or lesions identified. However, these findings are concerning for acute cholecystitis. Therefore, surgical consultation recommended. 06/18/21 10:27 MR MRCP Urgent IMPRESSION: 1. 5 mm impacted calculus within the distal common bile duct which results in mild intra and extra hepatic biliary ductal dilatation. 2. Cholelithiasis. In addition, gallbladder wall thickening and pericholecystic fluid. These findings favor acute cholecystitis. 06/18/21 10:37 US abdomen limited Routine IMPRESSION: 1. Gallbladder wall thickening with sludge and small stones. This likely represents acute cholecystitis. Surgical consultation recommended. 2. Dilated intra and extrahepatic bile ducts are again noted. The common bile duct stone seen on the same day MRCP is not clearly identified by this examination. 06/19/21 FL ERCP biliary ductal Routine IMPRESSION: Fluoroscopy provided during ERCP with placement of a common bile duct stent. ERCP: Impression: - The major papilla appeared normal. - Biliary papillary stenosis, benign. - Choledocholithiasis and sludge was found. Complete removal was accomplished by biliary sphincterotomy and balloon extraction. - One biliary stent was placed into the common bile duct. - Indomethacin given to decrease risk of post-ERCP pancreatitis. Recommendation: - Repeat ERCP in 6 weeks to remove stent. - Cholecystectomy as planned by General Surgery - Please avoid NSAIDS for 1 week. Hospital Course (1) Choledocholithiasis: -Presented with abdominal pain Found to have a total bilirubin of 10.3, AST of 270, ALT of 300. Normal lipase at 94. WBC count was normal. Patient was afebrile and hemodynamically stable CT of the abdomen and pelvis showed diffuse gallbladder wall thickening with pericholecystic fluid and common bile duct dilatation MRCP showed a 5 mm impacted stone in the common bile duct along with cholelithiasis and acute cholecystitis Patient had general surgery and GI on board Patient underwent ERCP on 06/19 with subsequent sphincterotomy and extraction of stone and sludge from common bile duct along with stent placement (see above) Following ERCP, patient underwent a laparoscopic cholecystectomy. He tolerated the procedure well without complications Patient was initially n.p.o. and empirically placed on Zosyn Following his procedure, he was started on clear liquids which was subsequently advanced as tolerated Seen on the morning of 06/20 and reports that his pain is adequately controlled with OxyIR His total bilirubin is downtrending (currently 3.5). AST/ALT are also do wntrending (57/178) Patient adamant that he would like to be discharged home today. He is tolerating oral intake and his pain is controlled I see no medical contraindications to proceed with discharge. We will continue antibiotic therapy X 10 days as outlined by general surgery and GI (Augmentin) I do advise follow-up labs by the end of the week to continue to trend his LFTs. Patient was given an order for this and encouraged to follow-up with [facility]. An appointment was attempted to be made by the nurse navigator; however, she was notified that the patient himself needs to call Patient to return to the ED for any new or worsening symptoms Patient to follow-up with general surgery in 2 weeks Patient to follow-up with GI and will need stent removal in 6 weeks School excuse provided (2) Acute cholecystitis: -see above (3) Transaminitis: -See above (4) Elevated bilirubin: - Documented h/o Gilbert's; however, pt also currently has an obstructive process which can cause hyperbilirubinemia--see above (5) GERD (gastroesophageal reflux disease): - Continue Protonix BID Total Time Total Time Spent Total Time Spent (In Minutes): 40 min including time spent with patient, coordination of care, preperation of documentation and D/W attending provider Discharge Plan Discharge Items Patient Disposition: Home - Self-Care Reason For Visit: CHOLEDOCHOLITHIASIS Discharge Diagnosis: 1. Acute Choledocholithiasis (stone in the common bile duct) 2. Acute Cholecystitis (inflammation of the Gallbladder) 3. Abnormal Liver Function Studies (from obstructing stone) Activity: Resume your previous activity Non-emergency contact: Primary Care Provider, Surgeon and Cna Call non-emergency contact if: you have any medication questions, your pain is concerning for you and your temperature is above 101 Follow-up/Referrals: Alyssa Robin DO [Physician] - (Office will call patient with appointment date and time.) [facility] [address] [Primary Care Provider] - (Please call [phone] to schedule an appointment with primary care at [facility]. You will need your student ID# when you call. They also have a lab on site and can perform your follow up blood work. When you call to schedule your primary care visit, they can also schedule a time for you to have your blood work done. ) Jacinto Guadalupe MD [Physician] - 07/31/21 9:15 am Diet: Low Fat Addtl Attending Provider Instructions: - you presented to the ED with abdominal pain - you were would to have an acutely inflamed gallbladder (your gallbladder has since been removed) - in addition, your liver function studies were very elevated (because of an obstructing stone in the common bile duct). You underwent ERCP (to remove the stone and a stent was placed) - complete full course of antibiotic therapy - you need to follow up with General Surgery (2 weeks) - you need to have the stent (in the common bile duct) removed in 6 weeks-- follow up with GI regarding this - Pain medication was prescribed to use sparingly as needed for pain (can be habit forming and should not be used while operating heavy machinery as can cause drowsiness) - I advise repeating your lab work on (see order) to continue to trend your liver function studies (Advise that you Follow up with [facility] regarding this as I will not be able to follow up on these results) - return to the ED for new or worsening symptoms 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 On Saturday, remove outer dressings and shower. Let water run over area and pat dry. - Leave steri strips on for one week and then remove, they may fall off on their own that is okay. - Call the surgeon's office with any questions or concerns - - (ex. temperature higher than 101 degrees F, excessive bleeding or pain). MEDICATIONS: - Resume previous medications unless instructed otherwise by your surgeon. - Avoid NSAIDs (Advil, Aleve, Ibuprofen) for 1 week - Take Oxycodone as needed and prescribed for moderate to severe pain - Recommend daily stool softener (Colace) while taking narcotic pain medication to prevent constipation or straining. FOLLOW UP VISIT: - If not already scheduled, please call the office to schedule a two week follow-up appointment. Office number Pending Studies at Discharge: No Stand-Alone Forms: [facility] [employer], Work/School Release, Smoking Cessation Medications and DC Order Prescriptions: New oxycodone 5 mg Tablet 5 mg PO Q6H PRN (Reason: pain) Qty: 20 RF: 0 pantoprazole 40 mg Tablet,Delayed Release (Dr/Ec) 40 mg PO DAILY Qty: 30 RF: 0 amoxicillin-pot clavulanate [Augmentin] 875-125 mg tablet 1 tab PO BID Qty: 17 RF: 0 Discharge Orders: Discharge Order (Routine); Ordered 06/20/21 Ordered By: Liz Lombardi/Other Patient Handouts: ERCP Endoscopic Retrograde ..., Cholecystectomy Laparoscopic Dc Admission Data Admit Date/Time: 06/18/21 00:46 Attending Provider: Vern Atkinson Admit Provider: Vangie Robin Primary Care Provider: [facility] [address] Other Providers: Vangie Robin ; Darleen Rodriguez ; Vern Atkinson Other Interventions: Discharge Summary Assessment (RN) Last Done: 06/20/21 13:22 Supervising Physician Co-Signing Physician Notes Patient seen and examined on the day of discharge. I agree with the discharge summary by Liz FRAIRE. I have reviewed the chart including labs, imaging and plans for discharge. patient doing well after ERCP and cholecystectomy pain is reasonably controlled, tolerating liquids and will advance slowly cleared for discharge by surgery and GI - Cholecystitis, choledocholithiasis s/p ERCP with biliary stent, bilirubin trended down appropriately, follow up with GI in several weeks for stent removal s/p cholecystectomy, now with post op pain but manageable post op restrictions written per surgery, follow up with them Coding Level of Care Code D/C DAY MANAGEMENT >30 MINS Diagnoses Choledocholithiasis K80.50 Acute cholecystitis K81.0 Transaminitis R74.01 Elevated bilirubin R17 GERD (gastroesophageal reflux disease) K21.9
== END 2021-06-20 13:55 | disposition home or self-care (01) | DRG 418 ==
LOC: ED 21:56 → 3W 06-18 00:46 → SUATTDRO 06-18 00:46 → 3W 06-18 01:39